=== PATIENT | male | born 1965 | race Caucasian/White ===

== ENCOUNTER 2020-03-16 09:58 | Emergency (ER) | payer MEDICAID, SELFPAY ==
[2020-03-16 10:09] VITALS: BP 211/118; PULSE 84; RESP 18; TEMP 36.7; O2SAT 97; BMI 23.7
--- NOTE | 2020-03-16 10:23 | XR_ITS ---
WS: [id number] PORTABLE CHEST HISTORY: dyspnea/cough COMPARISON: 01/28/2019 Lungs are clear and well expanded. No pleural effusion or pneumothorax. Cardiac size: Normal. Mediastinum/Aorta: Normal mediastinum. No osseous abnormality seen. XR/XR chest 1V portable [id number] IMPRESSION: Unremarkable portable chest.
--- NOTE | 2020-03-16 10:23 | ECG_ITS ---
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 Measurements Intervals [place] Rate: 91 P: 75 VT: 146 QRS: 56 QRSD: 89 T: 63 QT: 353 QTc: 435 Interpretive Statements SINUS RHYTHM WITH OCCASIONAL VENTRICULAR PREMATURE COMPLEXES LEFT VENTRICULAR HYPERTROPHY AND ST-T CHANGE [VOLTAGE CRITERIA PLUS ST/T ABNORMALITY] Compared to ECG 01/28/2019 12:09:01 Ventricular premature complex(es) now present ST (T wave) deviation now present Electronically Signed On 03-17-2020 16:23:51 CDT by Shivam Ray M.D. [email or web address].Pirate Brandsmethodist olive branch hospitalDirect Grid Technologiesdayton oste[facility].[employer]/store/NU/[id number] tank
[2020-03-16 10:53] LABS: Basophils # 0.1 10^3/uL (0.0-0.1); Basophils % 0.8 %; Eosinophils # 0.1 10^3/uL (0.0-0.8); Eosinophils % 1.6 %; Hematocrit 52.4 % (42.0-52.0); Hemoglobin 17.1 g/dL (11.7-16.6); Lymphocytes # 1.2 10^3/uL (0.8-4.8); Lymphocytes % 19.5 %; Mean Corpuscular HGB Conc 32.6 g/dL (30.0-36.0); Mean Corpuscular Volume 95.1 fL (80-94); Mean Platelet Volume 9.9 fL (7.4-10.4); Monocytes # 0.3 10^3/uL (0.2-0.9); Monocytes % 5.6 %; Neutrophils % 72.2 %; Nucleated Red Blood Cells % 0 %; Platelet Count 212 10^3/cmm (130-400); Red Blood Count 5.51 10^6/uL (4.1-5.3); Red Cell Distribution Width 13.1 % (12.1-15.1); White Blood Count 6.1 10^3/uL (4.0-10.0)
--- NOTE | 2020-03-16 10:53 | W.ED.SOB ---
HPI - SOB/Dyspnea General: Chief Complaint: Shortness of Breath/Dyspnea Stated Complaint: sob/chills/hot sweats Time Seen by Provider: 03/16/20 10:18 History of Present Illness: HPI Narrative: 54-year-old male comes in complaining of cough and shortness of breath he had some chest discomfort as well. Began last night. He is not been having any shortness of breath at rest there is no radiation of the pain he has had a bit of a headache. He has a history of WPW he also has a history of COPD. He has a little bit of increased cough is been nonproductive. MD elicited complaint: shortness of breath and chest pain Pertinent past history: COPD and other (History of Ortega Parkinson's White disease with previous ablations) Onset (ago): hour(s) Context: occurred during exertion Timing: intermittent Severity: moderate Exacerbating factors: exertion Relieving factors: rest and bronchodilators Known history of: COPD Associated symptoms: Reports chest congestion, chest pain and cough; Deny abdominal pain, diaphoresis, extremity pain, fever(s), hemoptysis, lightheadedness, myalgias, nausea, orthopnea, palpitations or syncope Treatment prior to arrival: none Review of Systems Const: Denies: fever(s) or diaphoresis ENMT: Denies: throat pain, ear or mastoid pain, nasal discharge or nasal congestion Card: Reports: chest pain; Denies: palpitations, lightheadedness, syncope or orthopnea Resp: Reports: chest congestion; Denies: hemoptysis GI: Denies: abdominal pain or nausea : Denies: flank pain, dysuria, urinary frequency or urinary urgency Musc: Denies: extremity pain Skin/Breast: Denies: rash or pruritus PFSH ED PFSH: Medical History (Updated 03/16/20 @ 12:39 by Raffaele Pacheco DO) COPD (chronic obstructive pulmonary disease) WPW (Vsgux-Htxblmtmo-Biswc syndrome) Surgical History (Updated 03/16/20 @ 12:39 by Raffaele Pacheco DO) History of cholecystectomy History of PTCA Social History (Updated 03/16/20 @ 12:40 by Raffaele Pacheco DO) Smoking and tobacco status: current every day smoker Alcohol intake: current Alcohol intake frequency: few times a week Physical Exam Const: COMMON NORMALS: no acute distress GENERAL APPEARANCE: cooperative and comfortable ORIENTATION/CONSCIOUSNESS: Yes awake, Yes oriented to person, Yes oriented to place and Yes oriented to time HENMT: COMMON NORMALS: normocephalic, atraumatic, hearing grossly normal bilaterally, external ears normal, moist oral mucous membranes and oropharynx normal HEAD & SCALP: normocephalic and atraumatic EXTERNAL EAR: Yes external ears normal Eye: COMMON NORMALS: Equal, round and reactive pupils present, EOMs intact bilaterally, conjunctivae normal and no scleral icterus CONJUNCTIVA: Yes conjunctivae normal PUPIL: Yes Equal, round and reactive pupils present Neck/C-Spine: COMMON NORMALS: full ROM, no lymphadenopathy, supple and no JVD Lymph: LYMPHATIC: no lymphadenopathy noted and no lymphedema noted Resp: COMMON NORMALS: normal respiratory effort, No retractions, No use of accessory muscles and clear to auscultation bilaterally AUSCULTATION: clear to auscultation bilaterally Cardio: COMMON NORMALS: no JVD, regular rate, regular rhythm and No murmurs present (Cardio) RATE: regular rate RHYTHM: regular rhythm GI: COMMON NORMALS: Soft to palpation and No hepatosplenomegaly present AUSCULTATION: Yes normoactive bowel sounds PALPATION: Yes Soft to palpation, No Tenderness to palpation present (GI), No Guarding due to palpation present (GI) and Yes No hepatosplenomegaly present Extremity: COMMON NORMALS: normal to inspection, capillary refill normal, no clubbing, cyanosis or edema, no calf tenderness and no pedal edema Neuro: SENSORIUM/ORIENTATION: Yes oriented to person, Yes oriented to place and Yes oriented to time Skin: COMMON NORMALS: no rashes or lesions noted GENERAL SKIN EXAM: no rashes or lesions noted Course Vital Signs: Vital signs: Vital Signs Temperature 98.0 F 03/16/20 10:09 Pulse Rate 99 03/16/20 11:30 Respiratory Rate 21 H 03/16/20 11:30 Blood Pressure 211/118 03/16/20 10:09 Pulse Oximetry 96 03/16/20 11:30 MDM - SOB/Dyspnea MDM Narrative: Medical decision making narrative: We are waiting on a second troponin on the patient is an EKG looking normal. He had no ST changes. He did not want to wait evidently had a court date nurse try to accommodate him by sending a note and he did not feel this is adequate insisted on leaving he left before I had the chance to talk to him the nurse did advise him that it was AGAINST MEDICAL ADVICE that we need to get a second troponin to make sure there is no ongoing heart issues and that this could be potentially significant impact on his health if he did not wait he chose to leave anyway. Unfortunately due to being required to be with other patients at the time I was not able to discuss this with him before he left. Lab Data: Labs: Lab Results 03/16/20 03/16/20 03/16/20 Range/Units 10:40 10:40 10:40 WBC 6.1 (4.0-10.0) 10^3/ uL RBC 5.51 H (4.1-5.3) 10^6/u L Hgb 17.1 H (11.7-16.6) g/dL Hct 52.4 H (42.0-52.0) % MCV 95.1 H (80-94) fL MCH 31.0 (28.0-34.0) pg MCHC 32.6 (30.0-36.0) g/dL RDW 13.1 (12.1-15.1) % Plt Count 212 (130-400) 10^3/c mm MPV 9.9 (7.4-10.4) fL Neut % (Auto) 72.2 % Lymph % (Auto) 19.5 % [place] % (Auto) 5.6 % Eos % (Auto) 1.6 % Baso % (Auto) 0.8 % Neut # (Auto) 4.40 (1.8-7.7) 10^3/u L Lymph # (Auto) 1.2 (0.8-4.8) 10^3/u L [place] # (Auto) 0.3 (0.2-0.9) 10^3/u L Eos # (Auto) 0.1 (0.0-0.8) 10^3/u L Baso # (Auto) 0.1 (0.0-0.1) 10^3/u L Nucleated RBC % (a uto) 0 % Nucleated RBCs # 0.0 /100WBC Sodium 138 (136-145) mmol/L Potassium 3.8 (3.5-5.1) mmol/L Chloride 100 (98-107) mmol/L Carbon Dioxide 25 (22-29) mmol/L Anion Gap 16.8 (5-19) BUN 8 (6-20) mg/dL Creatinine 0.8 (0.7-1.2) mg/dL GFR Calculation 100.4 (90-130) mL/min Glucose 216 H (65-115) mg/dL Calculated Osmolal ity 288 (285-295) mOsm/k g Calcium 9.2 (8.5-10.5) mg/dL Total Bilirubin 0.2 (0.15-1.2) mg/dL AST 45 H (0-40) U/L ALT 55 H (0-41) U/L Alkaline Phosphata se 82 (40-130) IU/L Troponin T Baselin e 11 (0-15) ng/L Total Protein 7.3 (6.6-8.7) g/dL Albumin 4.4 (3.5-5.2) g/dL Globulin 2.9 (1.3-4.6) g/dL Discharge Plan Discharge Patient Disposition: Left Against Medical Advice Prescriptions: No Action No Known Home Medications RF: 0 Referrals: Iris Palacios FNP [Primary Care Provider] - Discharge Date/Time: 03/16/20 12:00 Coding Level of Care Code ED Celery Cutter for Ryder Kilgore
[2020-03-16 11:00] VITALS: PULSE 79; RESP 17; O2SAT 96
[2020-03-16 11:07] VITALS: PULSE 83; RESP 20; O2SAT 94
[2020-03-16 11:20] LABS: Alanine Aminotransferase 55 U/L (0-41); Albumin Level 4.4 g/dL (3.5-5.2); Alkaline Phosphatase 82 IU/L (40-130); Blood Urea Nitrogen 8 mg/dL (6-20); Calcium 9.2 mg/dL (8.5-10.5); Carbon Dioxide 25 mmol/L (22-29); Chloride 100 mmol/L (98-107); Globulin 2.9 g/dL (1.3-4.6); Glomerular Filtration Rate 100.4 mL/min (90-130); Glucose 216 mg/dL (65-115); Osmolality Calculated 288 mOsm/kg (285-295); Sodium 138 mmol/L (136-145); Total Bilirubin 0.2 mg/dL (0.15-1.2); Total Protein 7.3 g/dL (6.6-8.7); Troponin(5th) Baseline 11 ng/L (0-15)
[2020-03-16 11:25] LABS: Anion Gap 16.8 (5-19)
[2020-03-16 11:26] LABS: Aspartate Amino Transferase 45 U/L (0-40); Potassium 3.8 mmol/L (3.5-5.1)
[2020-03-16] MEDS: acetaminophen 325 mg Tablet 650 MG PO (11:27)
[2020-03-16] MEDS: hyDRALAzine 20 mg/mL INJ 1 mL 5 MG IVP (11:28)
[2020-03-16] MEDS: amlodipine 5 mg Tablet PO (11:28)
[2020-03-16 11:30] VITALS: PULSE 99; RESP 21; O2SAT 96
== END 2020-03-16 12:00 | disposition left against medical advice (07) ==
PROVIDERS: Emergency Provider Family Medicine; PCP Nurse Practitioner
DX: R05 Cough (principal); R06.02 Shortness of breath; Z53.21 Procedure and treatment not carried out due to patient leaving prior to being seen by health care provider; J44.9 Chronic obstructive pulmonary disease, unspecified; I45.6 Pre-excitation syndrome; F17.210 Nicotine dependence, cigarettes, uncomplicated
CPT/HCPCS: 12345; 36415; 71045; 80053; 84484; 85025; 93005; 96374; 96375; 99283; 99284; J0360

== ENCOUNTER 2020-09-13 06:51 | Emergency (ER) | payer MEDICAID, SELFPAY ==
[2020-09-13 06:53] VITALS: BMI 27.3
--- NOTE | 2020-09-13 07:07 | ED_ITS ---
HPI - Abdominal Pain General: Chief Complaint: Abdominal Pain Stated Complaint: SEVERE ABDOMINAL PAIN Time Seen by Provider: 09/13/20 06:54 History of Present Illness: HPI narrative: The patient is a 55-year-old male with past medical history of COPD and brain surgery a few months back as well as chronic rash he is seeing his primary care physician for. He comes to the ER today complaining of about an hour of severe abdominal pain and fullness. He says he had a normal bowel movement this morning. Denies nausea, vomiting, diarrhea, constipation. Also denies chest pain and shortness of breath. Abdominal pain is diffuse and comes in waves. He took 3 Aleve prior to arrival to help with the symptoms however it is not helped. MD elicited complaint: abdominal pain Pertinent past history: none Onset (ago): hour(s) (1) Pain Consistency: intermittent Location: Diffuse Severity: severe Quality: cramping, fullness and sharp Migration to: no migration Exacerbating factors: nothing Relieving factors: nothing Associated Symptoms: Denies chills, constipation, diarrhea, dysuria, fever(s), nausea and vomiting Review of Systems General: Reports: 10 or more systems reviewed and unremarkable except in HPI and below Const: Denies: fever(s) or chills Eyes: Denies: change in vision, blurry vision or eye redness ENMT: Denies: throat pain, swelling of lips/tongue, ear or mastoid pain or nasal congestion Card: Denies: chest pain, palpitations, irregular heart rhythm, edema, dyspnea on exertion or orthopnea Resp: Denies: dyspnea, productive cough or non-productive cough GI: Reports: abdominal pain; Denies: nausea, vomiting, diarrhea or constipation : Denies: dysuria Musc: Denies: neck pain, back pain, extremity pain, joint pain, joint redness, limited range of motion or muscle weakness Skin/Breast: Denies: rash, pruritus, erythema, skin pain or skin tenderness Neuro: Denies: headache(s), numbness in extremities, weakness in extremities, sensory changes, difficulty walking, dizziness, confusion or Slurred speech present Psych: Denies: anxiety or depression Endo: Denies: polyuria All/Imm: Denies: urticaria, throat swelling or tongue swelling [facility] ED PFSH: Medical History (Updated 09/13/20 @ 13:10 by Rayshawn Mensah MD) COPD (chronic obstructive pulmonary disease) WPW (Qrctm-Vjjersmcf-Ukyrw syndrome) Surgical History (Updated 03/16/20 @ 12:39 by Raffaele Pacheco DO) History of cholecystectomy History of PTCA Social History (Updated 03/16/20 @ 12:40 by Raffaele Pacheco DO) Smoking and tobacco status: current every day smoker Alcohol intake: current Alcohol intake frequency: few times a week Physical Exam Const: COMMON NORMALS: no acute distress, average body habitus, patient oriented x3, no limitations, healthy appearing, alert and well nourished GENERAL APPEARANCE: cooperative, comfortable, well kempt and well developed ORIENTATION/CONSCIOUSNESS: Yes awake, Yes oriented to person, Yes oriented to place and Yes oriented to time HENMT: COMMON NORMALS: normocephalic, external ears normal and Normal external nose present HEAD & SCALP: normal to inspection and normocephalic NOSE: Normal external nose present EXTERNAL EAR: Yes external ears normal MOUTH: Normal oral and palatal mucosa present THROAT: posterior oropharynx normal Eye: COMMON NORMALS: Equal, round and reactive pupils present and EOMs intact bilaterally GENERAL EYE: appearance normal, both eyes and all related structures PUPIL: Yes Equal, round and reactive pupils present Neck/C-Spine: COMMON NORMALS: full ROM, no lymphadenopathy, no meningeal signs and no JVD GENERAL: Yes normal visual inspection Lymph: LYMPHATIC: no lymphadenopathy noted Chest: COMMONS NORMALS: normal inspection of the chest and normal palpation of entire chest wall Resp: COMMON NORMALS: normal respiratory effort, No retractions, No use of accessory muscles, clear to auscultation bilaterally and percussion normal EFFORT & INSPECTION: Yes able to speak in complete sentences AUSCULTATION: clear to auscultation bilaterally PERCUSSION: percussion normal Cardio: COMMON NORMALS: no JVD, regular rate, regular rhythm, S1 normal heart sound present, S2 normal heart sound present and Peripheral pulses 2+ throughout RATE: regular rate RHYTHM: regular rhythm HEART SOUNDS: S1 normal heart sound present and S2 normal heart sound present PERIPHERAL PULSES: Peripheral pulses 2+ throughout GI: COMMON NORMALS: Normal to inspection, nondistended, normoactive bowel sounds present, Soft to palpation, non-tender and no masses INSPECTION: Yes normal to inspection PALPATION: Yes Soft to palpation : COMMON NORMALS: Yes no CVA tenderness BLADDER/KIDNEY EXAM: Yes no CVA tenderness Back/Pelvis: COMMON NORMALS: no CVA tenderness, thoracic and lumbar spine normal to inspection, no thoracic nor lumbar tenderness and thoraco-lumbar ROM normal Extremity: COMMON NORMALS: normal to inspection, full ROM, capillary refill normal, no joint enlargement and no pedal edema GENERAL: Yes normal exam except as noted Neuro: COMMON NORMALS: patient oriented x3, CN's II-XII intact bilaterally, moves all extremities, no focal motor deficits, no sensory deficits noted and gait normal SENSORIUM/ORIENTATION: Yes alert, Yes oriented to person, Yes oriented to place and Yes oriented to time MENINGEAL SIGNS: Yes no meningeal signs Psych: COMMON NORMALS: mental status grossly normal, Normal thought process present, cooperative, normal affect and speech normal APPEARANCE: Yes well kempt ATTITUDE: Yes calm SPEECH: Yes normal speech THOUGHT PROCESS: Normal thought process present Skin: COMMON NORMALS: no rashes or lesions noted GENERAL SKIN EXAM: no rashes or lesions noted Course Vital Signs: Vital signs: Vital Signs Pulse Rate 110 H 09/13/20 11:48 Respiratory Rate 18 09/13/20 11:48 Blood Pressure 126/73 09/13/20 11:48 Pulse Oximetry 92 09/13/20 11:48 MDM - Abdominal Pain MDM Narrative: Medical decision making narrative: The patient is intoxicated on alcohol but he says he does not feel like his belly pain is related to this. His liver enzymes were elevated and I shirin a hepatitis panel which came back positive for hepatitis C and equivocal for hepatitis A. He has no previous knowledge of these infections. Discussed with his primary care physicians clinic which is closed. Dr. Rose is on-call for them and discussed the results with him and he says he will place a note in his chart so he can get a GI follow-up. will see in the ER. saw her in the ER and accepted for admission. He refused to give urine shortly after that visit and requested to leave. Discussed with him it would be AGAINST MEDICAL ADVICE. Discussed that he has hepatitis C and possibly hepatitis a and that he could have liver failure and from this. He understood and accepts the risks and signed AMA and left on his own will. Lab Data: Labs: Lab Results 01/17/21 01/17/21 01/17/21 Range/Units 07:03 07:03 07:03 WBC 8.7 (4.0-10.0) 10^3/ uL RBC 5.46 H (4.1-5.3) 10^6/u L Hgb 17.0 H (11.7-16.6) g/dL Hct 50.7 (42.0-52.0) % MCV 92.9 (80-94) fL MCH 31.1 (28.0-34.0) pg MCHC 33.5 (30.0-36.0) g/dL RDW 12.8 (12.1-15.1) % Plt Count 219 (130-400) 10^3/c mm MPV 9.7 (7.4-10.4) fL Neut % (Auto) 60.0 % Lymph % (Auto) 31.5 % [place] % (Auto) 5.6 % Eos % (Auto) 0.8 % Baso % (Auto) 0.6 % Neut # (Auto) 5.21 (1.8-7.7) 10^3/u L Lymph # (Auto) 2.7 (0.8-4.8) 10^3/u L [place] # (Auto) 0.5 (0.2-0.9) 10^3/u L Eos # (Auto) 0.1 (0.0-0.8) 10^3/u L Baso # (Auto) 0.1 (0.0-0.1) 10^3/u L Nucleated RBC % (a uto) 0 % Nucleated RBCs # 0.0 /100WBC Sodium 143 (136-145) mmol/L Potassium 3.7 (3.5-5.1) mmol/L Chloride 107 (98-107) mmol/L Carbon Dioxide 25 (22-29) mmol/L Anion Gap 14.7 (5-19) BUN 14 (6-20) mg/dL Creatinine 1.3 H (0.7-1.2) mg/dL GFR Calculation 57.1 L (90-130) mL/min Glucose 228 H (65-115) mg/dL Calculated Osmolal ity 304 H (285-295) mOsm/k g Lactate 2.4 H (0.5-2.2) mmol/L Calcium 9.3 (8.5-10.5) mg/dL Total Bilirubin 0.2 (0.15-1.2) mg/dL AST 61 H (0-40) U/L ALT 95 H (0-41) U/L Alkaline Phosphata se 78 (40-130) IU/L Total Protein 6.7 (6.6-8.7) g/dL Albumin 3.9 (3.5-5.2) g/dL Globulin 2.8 (1.3-4.6) g/dL Lipase 60 (13-60) U/L Ethyl Alcohol 202 H (0-10) mg/dL Hepatitis A IgM Ab (Nonreactive) Hep Bs Antigen (Nonreactive) Hep B Core IgM Ab (Nonreactive) Hepatitis C Antibo dy (Nonreactive) 09/13/20 Range/Units 07:03 WBC (4.0-10.0) 10^3/ uL RBC (4.1-5.3) 10^6/u L Hgb (11.7-16.6) g/dL Hct (42.0-52.0) % MCV (80-94) fL MCH (28.0-34.0) pg MCHC (30.0-36.0) g/dL RDW (12.1-15.1) % Plt Count (130-400) 10^3/c mm MPV (7.4-10.4) fL Neut % (Auto) % Lymph % (Auto) % [place] % (Auto) % Eos % (Auto) % Baso % (Auto) % Neut # (Auto) (1.8-7.7) 10^3/u L Lymph # (Auto) (0.8-4.8) 10^3/u L [place] # (Auto) (0.2-0.9) 10^3/u L Eos # (Auto) (0.0-0.8) 10^3/u L Baso # (Auto) (0.0-0.1) 10^3/u L Nucleated RBC % (a uto) % Nucleated RBCs # /100WBC Sodium (136-145) mmol/L Potassium (3.5-5.1) mmol/L Chloride (98-107) mmol/L Carbon Dioxide (22-29) mmol/L Anion Gap (5-19) BUN (6-20) mg/dL Creatinine (0.7-1.2) mg/dL GFR Calculation (90-130) mL/min Glucose (65-115) mg/dL Calculated Osmolal ity (285-295) mOsm/k g Lactate (0.5-2.2) mmol/L Calcium (8.5-10.5) mg/dL Total Bilirubin (0.15-1.2) mg/dL AST (0-40) U/L ALT (0-41) U/L Alkaline Phosphata se (40-130) IU/L Total Protein (6.6-8.7) g/dL Albumin (3.5-5.2) g/dL Globulin (1.3-4.6) g/dL Lipase (13-60) U/L Ethyl Alcohol (0-10) mg/dL Hepatitis A IgM Ab Equivocal A* (Nonreactive) Hep Bs Antigen Non-reactive (Nonreactive) Hep B Core IgM Ab Non-reactive (Nonreactive) Hepatitis C Antibo dy Reactive H (Nonreactive) Discharge Plan Discharge Patient Disposition: Left Against Medical Advice Clinical Impression: Hepatitis C, Hepatitis Prescriptions: No Action gabapentin 600 mg tablet 600 mg PO BID@0800,1800 RF: 0 ProAir HFA 90 mcg/actuation HFA aerosol inhaler 2 puff INHALATION Q4H PRN (Reason: Shortness Of Breath) RF: 0 Coding Level of Care Code ED Mass Communications Professor for Chg Fwd Exam Comprehensive
[2020-09-13] MEDS: diphenhydrAMINE 50 mg/mL SDV 1mL 25 MG IVP (07:10)
[2020-09-13] MEDS: ondansetron 2 mg/ML SDV 2 mL 4 MG IVP (07:11)
[2020-09-13] MEDS: sodium chloride 0.9% 1,000 ML 999 ML IV (07:11)
[2020-09-13 07:13] LABS: Basophils # 0.1 10^3/uL (0.0-0.1); Basophils % 0.6 %; Eosinophils # 0.1 10^3/uL (0.0-0.8); Eosinophils % 0.8 %; Hematocrit 50.7 % (42.0-52.0); Lymphocytes # 2.7 10^3/uL (0.8-4.8); Lymphocytes % 31.5 %; Mean Corpuscular HGB Conc 33.5 g/dL (30.0-36.0); Mean Corpuscular Hemoglobin 31.1 pg (28.0-34.0); Mean Corpuscular Volume 92.9 fL (80-94); Mean Platelet Volume 9.7 fL (7.4-10.4); Monocytes # 0.5 10^3/uL (0.2-0.9); Monocytes % 5.6 %; Neutrophils # 5.21 10^3/uL (1.8-7.7); Nucleated Red Blood Cells % 0 %; Platelet Count 219 10^3/cmm (130-400); Red Blood Count 5.46 10^6/uL (4.1-5.3); Red Cell Distribution Width 12.8 % (12.1-15.1); White Blood Count 8.7 10^3/uL (4.0-10.0)
[2020-09-13 07:34] LABS: Lactate (Lactic Acid level) 2.4 mmol/L (0.5-2.2)
[2020-09-13 07:35] LABS: Alanine Aminotransferase 95 U/L (0-41); Albumin Level 3.9 g/dL (3.5-5.2); Alcohol Level 202 mg/dL (0-10); Alkaline Phosphatase 78 IU/L (40-130); Anion Gap 14.7 (5-19); Aspartate Amino Transferase 61 U/L (0-40); Blood Urea Nitrogen 14 mg/dL (6-20); Calcium 9.3 mg/dL (8.5-10.5); Carbon Dioxide 25 mmol/L (22-29); Chloride 107 mmol/L (98-107); Creatinine Clr Calc Pharmacy 64.0873; Globulin 2.8 g/dL (1.3-4.6); Glomerular Filtration Rate 57.1 mL/min (90-130); Glucose 228 mg/dL (65-115); Lipase 60 U/L (13-60); Osmolality Calculated 304 mOsm/kg (285-295); Potassium 3.7 mmol/L (3.5-5.1); Sodium 143 mmol/L (136-145); Total Bilirubin 0.2 mg/dL (0.15-1.2); Total Protein 6.7 g/dL (6.6-8.7)
--- NOTE | 2020-09-13 07:55 | CTR_ITS ---
PROCEDURE INFORMATION: Exam: CT Abdomen And Pelvis With Contrast Exam date and time: 09/13/2020 8:11 AM Age: 55 years old Clinical indication: Abdominal pain; Additional info: Abd pain TECHNIQUE: Imaging protocol: Computed tomography of the abdomen and pelvis with intravenous contrast. Radiation optimization: All CT scans at this facility use at least one of these dose optimization techniques: automated exposure control; mA and/or kV adjustment per patient size (includes targeted exams where dose is matched to clinical indication); or iterative reconstruction. Contrast material: OMNI 300; Contrast volume: 95 ml; Contrast route: INTRAVENOUS (IV); COMPARISON: No relevant prior studies available. RADIATION DOSE METRICS: Total DLP (mGy-cm): 641.69 FINDINGS: Lungs: There is mild dependent atelectasis in the lung bases. There is a small benign calcified granuloma in the left lung base. Liver: Normal. No mass. Gallbladder and bile ducts: Cholecystectomy. Normal bile ducts. Pancreas: Normal. No ductal dilation. Spleen: The multiple small benign calcified granulomas in the spleen. Adrenal glands: Normal. No mass. Kidneys and ureters: Normal. No hydronephrosis. Stomach and bowel: Unremarkable. No obstruction. No mucosal thickening. Appendix: No evidence of appendicitis. Intraperitoneal space: Unremarkable. No free air. No significant fluid collection. Vasculature: There is calcified atherosclerotic plaquing in the aorta. There is no aneurysm. Lymph nodes: Unremarkable. No enlarged lymph nodes. Urinary bladder: Unremarkable as visualized. Reproductive: Unremarkable as visualized. Bones/joints: Unremarkable. No acute fracture. Soft tissues: Unremarkable. CT/CT abdomen pelvis w con* [id number] IMPRESSION: No acute abnormalities are seen in the abdomen and pelvis. Radiation Dose CTDIVOL = (mGy): DLP = 641.69 (mGy-cm)
[2020-09-13] MEDS: iohexol 300 mg/mL 100 mL Btl IV (08:27)
--- NOTE | 2020-09-13 08:40 | PC.NURSE ---
patient returned from ct reminded him that we needed urine and he said that if i dont give him something to drink he was going to check out
[2020-09-13 08:43] VITALS: BP 153/71; PULSE 101; RESP 20; O2SAT 92
[2020-09-13 09:36] LABS: Hepatitis B Core IgM Non-Reactive (Nonreactive); Hepatitis B Surface Antigen Non-Reactive (Nonreactive); Hepatitis C Virus Antibody Reactive (Nonreactive)
[2020-09-13 10:18] LABS: Hepatitis A Antibody IgM Equivocal (Nonreactive)
[2020-09-13 11:48] VITALS: BP 126/73; PULSE 110; RESP 18; O2SAT 92
--- NOTE | 2020-09-13 12:30 | PC.NURSE ---
patient continues to refuse to give urine sample
--- NOTE | 2020-09-14 10:20 | DCPLANNER ---
visual merchandising manager had message to schedule a follow up appointment for patient with a physician for retest of hep a and referral for chronic hep c. visual merchandising manager called the office of Dr. Souza, spoke with Eloisa, gave clinic patients information. A followup appointment was scheduled for Monday, September 23, 2020 at 1:[address] Souza. Clinic will call patient with appointment information.
--- NOTE | 2020-11-03 12:35 | DCPLANNER ---
Patient had a follow up appointment scheduled for 09.23.[address] Souza - patient did attend appointment.
== END 2020-09-13 12:46 | disposition left against medical advice (07) ==
PROVIDERS: Emergency Provider Family Medicine
DX: B19.20 Unspecified viral hepatitis C without hepatic coma (principal); Z53.21 Procedure and treatment not carried out due to patient leaving prior to being seen by health care provider; J44.9 Chronic obstructive pulmonary disease, unspecified; I45.6 Pre-excitation syndrome; F17.210 Nicotine dependence, cigarettes, uncomplicated
CPT/HCPCS: 12345; 74177; 80053; 80074; 80307; 83605; 83690; 85025; 96361; 96374; 96375; 99282; 99283; J1200; J2405; J7030; Q9967

== ENCOUNTER → 2020-09-23 14:51 | Outpatient (BNVA) | payer MEDICAID, SELFPAY | PROVIDERS: PCP Physician Assistant Medical; Visit Provider Internal Medicine | DX: R76.8 Other specified abnormal immunological findings in serum (principal); B19.20 Unspecified viral hepatitis C without hepatic coma; B18.2 Chronic viral hepatitis C | CPT/HCPCS: 80053; 85025; 86708; 86709; 87522; 87902 ==

== ENCOUNTER 2020-11-23 18:15 | Emergency (ER) | payer MEDICAID, SELFPAY ==
--- NOTE | 2020-11-23 18:22 | ECG_ITS ---
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1965 Requested By: Cierra Delgado Order Number: [id number] Reading MD: REY ADAMS Measurements Intervals Index Rate: 101 P: 71 MS: 141 QRS: 59 QRSD: 86 T: 72 QT: 360 QTc: 468 Interpretive Statements SINUS TACHYCARDIA WITH OCCASIONAL VENTRICULAR PREMATURE COMPLEXES WITH OCCASIONAL SUPRAVENTRICULAR PREMATURE COMPLEXES POSSIBLE RIGHT ATRIAL ENLARGEMENT [0.25mV P WAVE] POSSIBLE LEFT ATRIAL ENLARGEMENT [-0.1mV P WAVE IN V1/V2] POSSIBLE LEFT VENTRICULAR HYPERTROPHY [VOLTAGE CRITERIA PLUS LAE OR QRS WIDENING] NONSPECIFIC T-WAVE ABNORMALITY Compared to ECG 03/16/2020 10:41:10 T-wave abnormality now present Sinus rhythm no longer present ST (T wave) deviation no longer present Electronically Signed On 11-24-2020 20:18:13 CDT by REY ADAMS [email or web address].[employer]/store/OV/[id number]
--- NOTE | 2020-11-23 18:22 | XRR_ITS ---
PROCEDURE INFORMATION: Exam: XR Chest Exam date and time: 11/23/2020 6:35 PM Age: 55 years old Clinical indication: Chest pain; Type not specified; Additional info: Cp TECHNIQUE: Imaging protocol: XR of the chest Views: 1 view. Total images: 1 COMPARISON: CR XR chest 1V portable [id number] 03/16/2020 10:51 AM FINDINGS: Lungs: Unremarkable. No consolidation. Pleural spaces: Unremarkable. No pleural effusion. No pneumothorax. Heart/Mediastinum: Unremarkable. No cardiomegaly. Bones/joints: Unremarkable. XR/XR chest 1V portable [id number] IMPRESSION: No acute findings.
[2020-11-23 18:23] VITALS: PULSE 75; RESP 20; TEMP 36.5; O2SAT 95; BMI 25.1
[2020-11-23 18:52] VITALS: PULSE 84
[2020-11-23 18:57] LABS: Basophils % 0.4 %; Eosinophils # 0.1 10^3/uL (0.0-0.8); Eosinophils % 0.8 %; Hematocrit 52.6 % (42.0-52.0); Hemoglobin 17.7 g/dL (11.7-16.6); Lymphocytes # 2.2 10^3/uL (0.8-4.8); Lymphocytes % 21.2 %; Mean Corpuscular HGB Conc 33.7 g/dL (30.0-36.0); Mean Corpuscular Hemoglobin 31.2 pg (28.0-34.0); Mean Corpuscular Volume 92.8 fL (80-94); Monocytes # 0.6 10^3/uL (0.2-0.9); Monocytes % 5.4 %; Neutrophils # 7.52 10^3/uL (1.8-7.7); Neutrophils % 71.5 %; Nucleated Red Blood Cells % 0 %; Platelet Count 254 10^3/cmm (130-400); Red Blood Count 5.67 10^6/uL (4.1-5.3); Red Cell Distribution Width 12.8 % (12.1-15.1); White Blood Count 10.5 10^3/uL (4.0-10.0)
--- NOTE | 2020-11-23 18:59 | XRR_ITS ---
PROCEDURE INFORMATION: Exam: XR Right Knee Exam date and time: 11/23/2020 7:55 PM Age: 55 years old Clinical indication: Pain and injury or trauma; Fall; Blunt trauma; Knee; Right; Injury date: 11/23/30 TECHNIQUE: Imaging protocol: XR Right knee. Views: 3 views. COMPARISON: No relevant prior studies available. FINDINGS: Bones/joints: Normal. No acute fracture. Soft tissues: Normal. XR/XR knee RT 3V* [id number] IMPRESSION: No acute findings.
[2020-11-23] MEDS: aspirin 81 mg Chew Tablet 324 MG PO (19:24)
[2020-11-23 19:25] VITALS: RESP 20
[2020-11-23] MEDS: morphine 4 mg/mL SDV 1 mL IVP ×2 (19:25→23:19)
[2020-11-23] MEDS: ondansetron 2 mg/ML SDV 2 mL 4 MG IVP (19:26)
[2020-11-23 20:21] LABS: Alanine Aminotransferase 18 U/L (0-41); Albumin Level 4.5 g/dL (3.5-5.2); Alkaline Phosphatase 85 IU/L (40-130); Anion Gap 17.4 (5-19); Aspartate Amino Transferase 25 U/L (0-40); Blood Urea Nitrogen 17 mg/dL (6-20); Calcium 9.8 mg/dL (8.5-10.5); Carbon Dioxide 29 mmol/L (22-29); Chloride 95 mmol/L (98-107); Creatinine Clr Calc Pharmacy 64.8657; Globulin 3.6 g/dL (1.3-4.6); Glomerular Filtration Rate 52.4 mL/min (90-130); Glucose 142 mg/dL (65-115); Osmolality Calculated 290 mOsm/kg (285-295); Potassium 3.4 mmol/L (3.5-5.1); Sodium 138 mmol/L (136-145); Total Bilirubin 0.6 mg/dL (0.15-1.2); Total Protein 8.1 g/dL (6.6-8.7)
[2020-11-23 20:22] LABS: Troponin(5th) Baseline 31 ng/L (0-15)
[2020-11-23] MEDS: sodium chloride 0.9% 1,000 ML 999 ML IV (20:22)
--- NOTE | 2020-11-23 20:22 | ECG_ITS ---
[facility] Test Date: 2020-11-23 Pat Name: Marcio Herrera Department: Room: Gender: Male Marketing Professional: : 1965 Requested By: Cierra Delgado Order Number: [id number] Reading MD: REY ADAMS Measurements Intervals [place] Rate: 87 P: 61 IN: 132 QRS: 64 QRSD: 98 T: 21 QT: 422 QTc: 509 Interpretive Statements SINUS RHYTHM WITH OCCASIONAL SUPRAVENTRICULAR PREMATURE COMPLEXES POSSIBLE LEFT ATRIAL ENLARGEMENT [-0.1mV P WAVE IN V1/V2] POSSIBLE LEFT VENTRICULAR HYPERTROPHY [VOLTAGE CRITERIA PLUS LAE OR QRS WIDENING] PROLONGED QT INTERVAL Compared to ECG 03/16/2020 10:41:10 Prolonged QT interval now present Ventricular premature complex(es) no longer present ST (T wave) deviation no longer present Electronically Signed On 11-24-2020 20:20:26 CDT by REY ADAMS [email or web address] Kidsg[facility] systemiPractice Groupst[facility] [place] [facility].[employer]/store/NU/[id number] [email or web address]
[2020-11-23 20:27] LABS: Lipase 34 U/L (13-60)
[2020-11-23 22:24] LABS: Troponin 5 2HR 20.28 ng/L (0-15)
[2020-11-23 22:58] VITALS: BP 135/71; PULSE 98; RESP 14; O2SAT 93
--- NOTE | 2020-11-23 23:02 | W.ED.CHESTPA ---
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 He has some dizziness. He is therefore here to be evaluated. He also complains of right knee pain. MD complaint: chest pain Pertinent past history: other (WPW syndrome) Timing of current episode: episodic Prior episodes: No Onset: during exertion Pain location: left chest Pain radiation: neck Severity: moderate Relieving factors: nothing Exacerbating factors: nothing Associated symptoms: Deny abdominal pain, diaphoresis, dyspnea, fever(s), leg edema, nausea, palpitations, sense of impending doom, syncope or vomiting Treatment prior to arrival: none Review of Systems General: Reports: 10 or more systems reviewed and unremarkable except in HPI and below Const: Denies: fever(s) or diaphoresis Card: Denies: palpitations or syncope Resp: Denies: dyspnea GI: Denies: abdominal pain, nausea or vomiting [facility] PFSH: Medical History COPD (chronic obstructive pulmonary disease) WPW (Znhch-Zdmkrmslo-Dunya syndrome) Surgical History History of cholecystectomy History of PTCA Social History Smoking and tobacco status: current every day smoker Alcohol intake: current Alcohol intake frequency: few times a week History of recent travel: No Physical Exam Const: COMMON NORMALS: no acute distress, average body habitus, patient oriented x3, no limitations, healthy appearing, alert and well nourished HENMT: COMMON NORMALS: normocephalic, atraumatic and moist oral mucous membranes HEAD & SCALP: normocephalic and atraumatic Neck/C-Spine: COMMON NORMALS: no meningeal signs and no JVD Resp: COMMON NORMALS: normal respiratory effort, No retractions, No use of accessory muscles, clear to auscultation bilaterally and percussion normal AUSCULTATION: clear to auscultation bilaterally PERCUSSION: percussion normal Cardio: COMMON NORMALS: no JVD, regular rhythm, S1 normal heart sound present, S2 normal heart sound present, No gallops present (Cardio), No clicks present (Cardio), No murmurs present (Cardio), No rub (Cardio) and Peripheral pulses 2+ throughout RATE: tachycardic RHYTHM: regular rhythm HEART SOUNDS: S1 normal heart sound present and S2 normal heart sound present PERIPHERAL PULSES: Peripheral pulses 2+ throughout GI: COMMON NORMALS: Normal to inspection, nondistended, normoactive bowel sounds present, Soft to palpation, non-tender, No hepatosplenomegaly present, no masses and no bruits PALPATION: Yes Soft to palpation and Yes No hepatosplenomegaly present Extremity: COMMON NORMALS: normal to inspection, full ROM, capillary refill normal, no calf tenderness and no pedal edema RIGHT LOWER EXTREMITY: Yes knee joint Right knee: Yes inspection (no abnormal findings on inspection.) and Yes palpation (vague pain that is non specific) Neuro: COMMON NORMALS: patient oriented x3 SENSORIUM/ORIENTATION: Yes alert MENINGEAL SIGNS: Yes no meningeal signs Skin: COMMON NORMALS: no rashes or lesions noted, no wounds, turgor normal, no jaundice, no petechiae and no mottling GENERAL SKIN EXAM: no rashes or lesions noted and turgor normal Course Reevaluation(s): Reevaluation #1: Discussed his lab and imaging findings with him. HEART score is 4, with a MACE of 17% within 6 weeks. Discussed treatment options including hospitalization for further cardiac thoughts, but he declined hospitalization. He however agreed to an outpatient stress test and he will be scheduled for one as soon as possible. He voiced understanding and all questions answered. 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 Evaluation in the ED showed an elevation of baseline troponin and a 2 hour delta of -10 which is significant. HEART score of 4, moderate risk. He declined hospitalization so he is scheduled for an outpatient stress test. He understands that he is to return for any concerns. Medical Records: Attestation: I reviewed the patient's medical records. Lab Data: Attestation: I reviewed the patient's lab results. Labs: Lab Results 11/23/20 11/23/20 11/23/20 Range/Units 18:51 19:58 19:58 WBC 10.5 H (4.0-10.0) 10^3/ uL RBC 5.67 H (4.1-5.3) 10^6/u L Hgb 17.7 H (11.7-16.6) g/dL Hct 52.6 H (42.0-52.0) % MCV 92.8 (80-94) fL MCH 31.2 (28.0-34.0) pg MCHC 33.7 (30.0-36.0) g/dL RDW 12.8 (12.1-15.1) % Plt Count 254 (130-400) 10^3/c mm MPV 10.0 (7.4-10.4) fL Neut % (Auto) 71.5 % Lymph % (Auto) 21.2 % [place] % (Auto) 5.4 % Eos % (Auto) 0.8 % Baso % (Auto) 0.4 % Neut # (Auto) 7.52 (1.8-7.7) 10^3/u L Lymph # (Auto) 2.2 (0.8-4.8) 10^3/u L [place] # (Auto) 0.6 (0.2-0.9) 10^3/u L Eos # (Auto) 0.1 (0.0-0.8) 10^3/u L Baso # (Auto) 0.0 (0.0-0.1) 10^3/u L Nucleated RBC % (a uto) 0 % Nucleated RBCs # 0.0 /100WBC D-Dimer (0-0.59) ug/mIFE U Sodium 138 (136-145) mmol/L Potassium 3.4 L (3.5-5.1) mmol/L Chloride 95 L (98-107) mmol/L Carbon Dioxide 29 (22-29) mmol/L Anion Gap 17.4 (5-19) BUN 17 (6-20) mg/dL Creatinine 1.4 H (0.7-1.2) mg/dL GFR Calculation 52.4 L (90-130) mL/min Glucose 142 H (65-115) mg/dL Calculated Osmolal ity 290 (285-295) mOsm/k g Calcium 9.8 (8.5-10.5) mg/dL Total Bilirubin 0.6 (0.15-1.2) mg/dL AST 25 (0-40) U/L ALT 18 (0-41) U/L Alkaline Phosphata se 85 (40-130) IU/L Troponin T Baselin e 31 H (0-15) ng/L Troponin T 120 Min pala (0-15) ng/L Delta Troponin T (0-10) ABS# Total Protein 8.1 (6.6-8.7) g/dL Albumin 4.5 (3.5-5.2) g/dL Globulin 3.6 (1.3-4.6) g/dL Lipase (13-60) U/L 11/23/20 11/23/20 11/23/20 Range/Units 19:58 19:58 22:00 WBC (4.0-10.0) 10^3/ uL RBC (4.1-5.3) 10^6/u L Hgb (11.7-16.6) g/dL Hct (42.0-52.0) % MCV (80-94) fL MCH (28.0-34.0) pg MCHC (30.0-36.0) g/dL RDW (12.1-15.1) % Plt Count (130-400) 10^3/c mm MPV (7.4-10.4) fL Neut % (Auto) % Lymph % (Auto) % [place] % (Auto) % Eos % (Auto) % Baso % (Auto) % Neut # (Auto) (1.8-7.7) 10^3/u L Lymph # (Auto) (0.8-4.8) 10^3/u L [place] # (Auto) (0.2-0.9) 10^3/u L Eos # (Auto) (0.0-0.8) 10^3/u L Baso # (Auto) (0.0-0.1) 10^3/u L Nucleated RBC % (a uto) % Nucleated RBCs # /100WBC D-Dimer 0.40 (0-0.59) ug/mIFE U Sodium (136-145) mmol/L Potassium (3.5-5.1) mmol/L Chloride (98-107) mmol/L Carbon Dioxide (22-29) mmol/L Anion Gap (5-19) BUN (6-20) mg/dL Creatinine (0.7-1.2) mg/dL GFR Calculation (90-130) mL/min Glucose (65-115) mg/dL Calculated Osmolal ity (285-295) mOsm/k g Calcium (8.5-10.5) mg/dL Total Bilirubin (0.15-1.2) mg/dL AST (0-40) U/L ALT (0-41) U/L Alkaline Phosphata se (40-130) IU/L Troponin T Baselin e (0-15) ng/L Troponin T 120 Min pala 20.28 H (0-15) ng/L Delta Troponin T -10.72 L (0-10) ABS# Total Protein (6.6-8.7) g/dL Albumin (3.5-5.2) g/dL Globulin (1.3-4.6) g/dL Lipase 34 (13-60) U/L Imaging Data^: CXR: Attestation: I personally reviewed and interpreted this imaging study as follows: Radiologist's impression: [address] [address] XRay Report Signed Patient: Jose David Herrera #: [id number] : 1965Acct#:[id number] Age/Sex: 55 / MADM Date: 11/23/20 Loc: ERRoom/Bed: Attending Dr: Ordering Provider/Ordering MD: Cierra Delgado MD Date of Service: 11/23/20 Procedure(s): XR chest 1V portable [id number] Accession Number(s): [id number] Report Number: [id number] PROCEDURE INFORMATION: Exam: XR Chest Exam date and time: 11/23/2020 6:35 PM Age: 55 years old Clinical indication: Chest pain; Type not specified; Additional info: Cp TECHNIQUE: Imaging protocol: XR of the chest Views: 1 view. Total images: 1 COMPARISON: CR XR chest 1V portable [id number] 03/16/2020 10:51 AM FINDINGS: Lungs: Unremarkable. No consolidation. Pleural spaces: Unremarkable. No pleural effusion. No pneumothorax. Heart/Mediastinum: Unremarkable. No cardiomegaly. Bones/joints: Unremarkable. XR/XR chest 1V portable [id number] IMPRESSION: No acute findings. Dictated By:Yefri Conley Signed By:Deisy Conley Date/Time:11/23/202358 DD/ 55 Xray Ortho: Attestation: I personally reviewed and interpreted this imaging study as follows: Radiologist's impression: [address] [address] XRay Report Signed Patient: Jose David Herrera #: [id number] : 1965Acct#:[id number] Age/Sex: 55 / MADM Date: 11/23/20 Loc: ERRoom/Bed: Attending Dr: Ordering Provider/Ordering MD: Polo T[place] [facility] [place] of Service: 11/23/20 Procedure(s): XR knee RT 3V* [id number] Accession Number(s): [id number] Report Number: [id number] PROCEDURE INFORMATION: Exam: XR Right Knee Exam date and time: 11/23/2020 7:55 PM Age: 55 years old Clinical indication: Pain and injury or trauma; Fall; Blunt trauma; Knee; Right; Injury date: 11/23/30 TECHNIQUE: Imaging protocol: XR Right knee. Views: 3 views. COMPARISON: No relevant prior studies available. FINDINGS: Bones/joints: Normal. No acute fracture. Soft tissues: Normal. XR/XR knee RT 3V* [id number] IMPRESSION: No acute findings. Dictated By:Indy Abernathy DO Signed By:Indy Abernathy DOSigned Date/Time:11/24/2014 DD/ EKG Data^: EKG 1: Attestation: I personally reviewed and interpreted this EKG as follows: EKG interpretation date: 11/23/20 EKG interpretation time: 22:07 Prior EKG tracings: not available for review Interpretation: Sinus tachycardia with occasional PVC's HR 101 bpm q wave in leads II, III, aVF. No ST changes. Discharge Plan Discharge Patient Disposition: Home Clinical Impression: WPW (Cnnup-Qvkyhjcaj-Dmywh syndrome), Chest pain Condition: Stable Prescriptions: Continued terbinafine HCl 250 mg tablet 250 mg PO DAILY Qty: 14 RF: 0 mupirocin 2 % ointment 1 applic topical BID Qty: 22 RF: 1 celecoxib [Celebrex] 200 mg capsule 200 mg PO BID Qty: 60 RF: 4 sofosbuvir-velpatasvir [Epclusa] 400-100 mg tablet 1 tab PO DAILY 84 Days Qty: 28 RF: 2 pantoprazole 40 mg tablet,delayed release (DR/EC) 40 mg PO QAM Qty: 90 RF: 3 gabapentin 600 mg tablet 600 mg PO BID@0800,1800 RF: 0 ProAir HFA 90 mcg/actuation HFA aerosol inhaler 2 puff INHALATION Q4H PRN (Reason: Shortness Of Breath) RF: 0 Discharge Orders: Discharge ED (Routine); Ordered 11/23/20 Ordered By: Polo Tuttle Referrals: Fernando Beckford [Primary Care Provider] - 1-3 days Discharge Diet: Usual diet Discharge Activity: Increase activity as tolerated Patient Instructions: Chest Pain (ED) Activity Restrictions/Additional Instructions: Return for any new or worsening symptoms. Follow-up with your primary care provider within 3 days. You will be contacted to schedule an outpatient stress test. Take your home medications as prescribed. Coding Level of Care Code ED Media Reporter for Ryder Kilgore
[2020-11-23 23:19] VITALS: RESP 18; O2SAT 99
--- NOTE | 2020-11-26 14:00 | DCPLANNER ---
health and safety manager had message to schedule an outpatient stress test for patient. health and safety manager faxed signed order for stress test to centralized scheduling. Centralized scheduling will call patient to schedule appointment.
--- NOTE | 2020-12-08 08:07 | DCPLANNER ---
Patient has an outpatient stress test scheduled for Tuesday, December 15, 2020 at 1:00.
--- NOTE | 2020-12-23 10:41 | DCPLANNER ---
Patient had an outpatient stress test scheduled for 12.15.20 - patient did not attend appointment.
== END 2020-11-23 23:24 | disposition home or self-care (01) ==
PROVIDERS: Emergency Medicine; Emergency Provider Family Medicine; PCP Physician Assistant Medical
DX: R07.9 Chest pain, unspecified (principal); I45.6 Pre-excitation syndrome; J44.9 Chronic obstructive pulmonary disease, unspecified; F17.210 Nicotine dependence, cigarettes, uncomplicated
CPT/HCPCS: 36415; 71045; 73562; 80053; 83690; 84484; 85025; 85378; 93005; 96361; 96374; 96375; 96376; 99284; J2270; J2405; J7030

== ENCOUNTER 2021-05-19 05:47 | Emergency (ER) | payer MEDICAID, SELFPAY ==
[2021-05-19 05:50] VITALS: BP 202/93; PULSE 88; RESP 22; TEMP 36.2; O2SAT 96; BMI 25.1
--- NOTE | 2021-05-19 06:14 | CTR_ITS ---
PROCEDURE INFORMATION: Exam: CT Head Without Contrast Exam date and time: 05/19/2021 6:14 AM Age: 56 years old Clinical indication: Injury or trauma; Fall; Blunt trauma (contusions or hematomas); Prior surgery; Additional info: Rule out brain bleed, fall TECHNIQUE: Imaging protocol: Computed tomography of the head without contrast. Radiation optimization: All CT scans at this facility use at least one of these dose optimization techniques: automated exposure control; mA and/or kV adjustment per patient size (includes targeted exams where dose is matched to clinical indication); or iterative reconstruction. COMPARISON: MRI Cervical Spine w/o* [id number] 04/20/2015 3:14 PM RADIATION DOSE METRICS: Total DLP (mGy-cm): 2101.89 FINDINGS: Brain: Small area of encephalomalacia in the right temporal lobe, consistent with remote insult. No abnormal intra-axial or extra-axial fluid collections are identified. There is no midline shift. No intracranial hemorrhage identified. Ventricles: The ventricles and sulci are mildly and diffusely prominent, compatible with global brain volume loss. Bones/joints: Status post right frontoparietotemporal craniotomy. Sinuses: Marked mucosal thickening of the right maxillary sinus. Status post bilateral nasoantral window formation. Mastoid air cells: Visualized mastoid air cells are well aerated. Soft tissues: Unremarkable. CT/CT head wo con* [id number] IMPRESSION: 1. No acute intracranial process identified. Radiation Dose CTDIVOL = (mGy): DLP = 2101.89 (mGy-cm)
--- NOTE | 2021-05-19 06:14 | CTR_ITS ---
PROCEDURE INFORMATION: Exam: CT Thoracic Spine Without Contrast Exam date and time: 05/19/2021 6:14 AM Age: 56 years old Clinical indication: Injury or trauma; Fall; Blunt trauma (contusions or hematomas); Patient HX: Patient fell down a flight of stairs 3 days ago. C/O mid back pain. ; Additional info: Rule out vertebral FX, T8-9 tenderness to palpation TECHNIQUE: Imaging protocol: Computed tomography images of the thoracic spine without contrast. Radiation optimization: All CT scans at this facility use at least one of these dose optimization techniques: automated exposure control; mA and/or kV adjustment per patient size (includes targeted exams where dose is matched to clinical indication); or iterative reconstruction. COMPARISON: CT abdomen pelvis w con* [id number] 09/13/2020 8:18 AM RADIATION DOSE METRICS: Total DLP (mGy-cm): 1478.35 FINDINGS: Vertebrae: There is a normal thoracic kyphosis. There is normal alignment of the thoracic spine. No fractures or dislocations identified involving the thoracic spine. Nondisplaced fracture of the left 3rd rib medially on series 2, image 28. Nondisplaced fracture of the left 4th rib medially on series 2, image 38. Nondisplaced fracture of the left 5th rib medially on series 2, image 45. Vertebral body heights are well maintained throughout. Discs/Spinal canal/Neural foramina: Intervertebral disc heights are well maintained throughout. The bony spinal canal is patent. Soft tissues: Unremarkable. CT/CT thoracic spin wo con* [id number] IMPRESSION: 1. Nondisplaced fractures of the left 3rd rib medially, the left 4th rib medially, and the left 5th rib medially. Radiation Dose CTDIVOL = (mGy): DLP = 1478.35 (mGy-cm)
--- NOTE | 2021-05-19 06:14 | XRR_ITS ---
PROCEDURE INFORMATION: Exam: XR Left Shoulder Exam date and time: 05/19/2021 6:14 AM Age: 56 years old Clinical indication: Injury or trauma; Fall; Blunt trauma (contusions or hematomas); Left; Injury details: Fell 2 days ago, pain to shoulder; Additional info: Rule out dislocation L shoulder TECHNIQUE: Imaging protocol: XR Left shoulder. Views: 2 or more views. COMPARISON: CR XR chest 2V* [id number] 05/19/2021 6:41 AM FINDINGS: Bones/joints: No fractures or dislocations identified. No significant bony abnormality identified. Soft tissues: No subcutaneous gas or radiopaque foreign body identified. XR/XR shoulder LT min 2V* [id number] IMPRESSION: 1. No fractures or dislocations identified.
--- NOTE | 2021-05-19 06:17 | W.ED.GENADLT ---
HPI - General Adult General: Chief complaint: Fall Stated complaint: FALL Time Seen by Provider: 05/19/21 06:14 History of Present Illness: HPI narrative: Patient is a 56-year-old male with hx of hypertension, COPD, prior VTE is not on blood thinners presenting to the emergency for episode of fall. Patient reports falling 3 days ago while walking down the stairs. Patient reports hitting his head complaining of left shoulder pain, left rib pain, left flank pain. Since then, patient has not had any improvement in pain presents the emergency room for evaluation. Patient is describes left-sided rib pain for which he is decreased range of motion of the left shoulder. Patient denies any associated chest pain shortness of breath, palpitation prior to the episode of fall. Onset: 3 days ago Duration:3 days Location: home Severity:moderate Review of Systems Narrative: Constitutional: No fever, no chills. HEENT: No vision changes CV: No chest pain, no palpitations PULM: no cough, no dyspnea. GI: No abdominal pain, no N/V/D. : No dysuria MSKEL: +L shoulder pain, +L uppre back pain, +L flank pain, +L elbow pain, +R occpital scalp pain SKIN: +Abrasions over the L elbow/scalp, +L flank bruises NEURO: No headache, no focal weakness. HEME: No visible bruises PSYCH: Normal mood PFSH ED PFSH: Medical History COPD (chronic obstructive pulmonary disease) WPW (Fegbd-Qyzewxfxb-Nepju syndrome) Surgical History History of cholecystectomy History of PTCA Social History Smoking and tobacco status: current every day smoker Alcohol intake: current Alcohol intake frequency: few times a week History of recent travel: No Physical Exam Narrative: EXAM NARRATIVE: Head: Atraumatic Eyes: PERRL, conjunctiva without injection ENT: Mucous membrane moist NECK: Supple, ROM intact LUNGS: LCTAB, no crackles/rhonchi CV: RRR ABDOMEN: Soft, nontender in all quadrants EXTREMITY: +significantly decreased ROM of the L shoulder due to pain, + mild decreased ROM of the L elbow due to pain, 2+ radial pulse L hand, patient able to perform OK/thumbs up/fist signs with the L hand, sensations intact in the R/M/U distribution L hand. Compartments non-tense in the affected arm. SKIN: +abrasions over the L elbow/R occipital scalp NEURO: Awake and alert, no focal motor deficits PSYCH: Normal mood and affect Course Vital Signs: Vital signs: Vital Signs Temperature 97.1 F L 05/19/21 05:50 Pulse Rate 89 05/19/21 08:47 Respiratory Rate 15 05/19/21 08:47 Blood Pressure 176/114 05/19/21 08:47 Pulse Oximetry 96 05/19/21 08:47 MDM - General Adult MDM Narrative: Medical decision making narrative: Patient is a 56-year-old male seen to the emergency room after an episode of fall x3 days ago. Patient has decreased range of motion of the left shoulder and left elbow due to pain. In addition patient has multiple abrasions over the scalp and left elbow and bruises over the left flank Work-up today includes CT brain, CT T-spine, CT abdomen pelvis, x-ray rib series x-ray chest, x-ray shoulder, and XR elbow to rule out trauma. Intervention: morphine, tylenol for pain On reassessment at 8:10am, imaing studies showed non displaced L 4/5/6 ribs and R 11th rib. Patient received morphine and dilaudid in the ED with significant pain improvement. I offered TDAP today but patient declined. Given age and comorbidites and onset of symptoms x 3 days, patient is stable for outpatient management. Rx percocet TID PRN pain and incentive spirometer. I have given patient follow up with our case folder to be seen outpatient with physical therapy, orthopedics, and PCP. Disposition: Discharge. Patient is given strict return precautions for any worsening pain, fever/chills, difficulty breathing, or any new or concerning complaints Imaging Data^: Other Imaging: Radiologist's impression: [address], [place] [address]RKxa ReportSigned Patient: Jose David Herrera #: [id number]: 1965Acct#:[id number]/Sex: 56 / MADM Date: 05/19/21Loc: ERRoom/Bed:Attending Dr: Ordering Provider/Ordering MD: Citlali Olivares MD Date of Service: 05/19/21 Procedure(s): XR elbow LT 2V 11524 Accession Number(s): [id number] Report Number: [id number] PROCEDURE INFORMATION: Exam: XR Left Elbow Exam date and time: 05/19/2021 6:22 AM Age: 56 years old Clinical indication: Injury or trauma; Fall; Blunt trauma (contusions or hematomas); Left; Injury details: Fell 2 days pain to elbow; Additional info: Rule out FX TECHNIQUE: Imaging protocol: XR Left elbow. Views: 1 or 2 views. COMPARISON: CR Elbow 3 views, LEFT* [id number] 02/11/2015 5:28 PM FINDINGS: Bones/joints: No fractures or dislocations identified. No significant bony abnormality identified. Soft tissues: No subcutaneous gas or radiopaque foreign body identified. XR/XR elbow LT 2V 11351 IMPRESSION: 1. No fractures or dislocations identified. Dictated By:Won Ramon MDSigned By:Won Ramon MDSigned Date/Time:05/19/21 0714DD/ [address] [address]JXbr ReportSigned Patient: Jose David Herrera #: [id number]: 1965Acct#:[id number]/Sex: 56 / MADM Date: 05/19/21Loc: ERRoom/Bed:Attending Dr: Ordering Provider/Ordering MD: Citlali Olivares MD Date of Service: 05/19/21 Procedure(s): XR ribs LT 2V* 77694 Accession Number(s): [id number] Report Number: [id number] PROCEDURE INFORMATION: Exam: XR Left Ribs Exam date and time: 05/19/2021 6:17 AM Age: 56 years old Clinical indication: Injury or trauma; Fall; Rib area, left side; Blunt trauma; Injury details: Fell 2 days ago pain to upper posterior ribs; Prior surgery; Surgery date: 6+ months; Surgery type: Heart x 2; Additional info: Rule out trauma TECHNIQUE: Imaging protocol: XR Left ribs. Views: 2 views. COMPARISON: 1. CR XR chest 2V* [id number] 05/19/2021 6:[address] of the thoracic spine 05/19/2021 FINDINGS: Bones/joints: No fractures or dislocations identified. Left rib fractures seen on concurrent CT of the thoracic spine not visualized on this study. Soft tissues: Unremarkable. XR/XR ribs LT 2V* 26937 IMPRESSION: 1. No fractures or dislocations identified. Left rib fractures seen on concurrent CT of the thoracic spine not visualized on this study. Dictated By:Won Ramonigned By:Won Ramon MDSigned Date/Time:05/19/21716DD/ 4 [address] [place], [place] [address]TKtz ReportSigned Patient: Jose David Herrera #: [id number]: 1965Acct#:[id number]/Sex: 56 / MADM Date: 05/19/21Loc: ERRoom/Bed:Attending Dr: Ordering Provider/Ordering MD: Citlali Olivares MD Date of Service: 05/19/21 Procedure(s): XR chest 2V* 21053 Accession Number(s): [id number] Report Number: [id number] PROCEDURE INFORMATION: Exam: XR Chest Exam date and time: 05/19/2021 6:17 AM Age: 56 years old Clinical indication: Injury or trauma; Fall; Blunt trauma (contusions or hematomas); Injury details: Fell 2 days ago, pain to upper posterior ribs, lt shoulder and lt elbow; Additional info: Fall evaluate for L sided rib trauma TECHNIQUE: Imaging protocol: XR of the chest. Views: 2 views. COMPARISON: CR XR chest 1V portable 76656 11/23/2020 6:42 PM FINDINGS: Lungs: Unremarkable. No consolidation. Pleural spaces: Unremarkable. No pleural effusion. No pneumothorax. Heart/Mediastinum: Unremarkable. No cardiomegaly. Bones/joints: No emergent findings identified. XR/XR chest 2V* 25417 IMPRESSION: 1. No acute findings. Dictated By:Won Ramon MDSigned By:Won Ramon MDSigned Date/Time:05/19/21 0704DD/ 0702 [facility] [place] [id number] Scan ReportSigned Patient: Jose David Herrera #: [id number]: 1965Acct#:[id number]/Sex: 56 / MADM Date: 05/19/21Loc: ERRoom/Bed:Attending Dr: Ordering Provider/Ordering MD: Citlali Olivares MD Date of Service: 05/19/21 Procedure(s): CT abdomen pelvis con 41014 Accession Number(s): [id number] Report Number: [id number] PROCEDURE INFORMATION: Exam: CT Abdomen And Pelvis Without Contrast Exam date and time: 05/19/2021 6:16 AM Age: 56 years old Clinical indication: Injury or trauma; Blunt; Abdominal wall; Prior surgery; Surgery type: Gb; Patient HX: Fall down a flight of stairs 3 days ago. C/O left flank pain with bruising. ; Additional info: L sided flank bruise, after fall TECHNIQUE: Imaging protocol: Computed tomography of the abdomen and pelvis without contrast. Radiation optimization: All CT scans at this facility use at least one of these dose optimization techniques: automated exposure control; mA and/or kV adjustment per patient size (includes targeted exams where dose is matched to clinical indication); or iterative reconstruction. COMPARISON: CT abdomen pelvis w con* [id number] 09/13/2020 8:18 AM RADIATION DOSE METRICS: Total DLP (mGy-cm): 1432.6 FINDINGS: Limitations: Examinations performed without intravenous contrast have limited ability to detect many conditions. Liver: Unremarkable. Gallbladder and bile ducts: Status post cholecystectomy. Pancreas: Unremarkable. Spleen: Many small calcified granulomata in the spleen. Adrenal glands: Unremarkable. Kidneys and ureters: The kidneys are unremarkable. No renal stones identified. No hydronephrosis on either side. Stomach and bowel: No bowel obstruction identified. No diverticulitis identified. Appendix: The appendix is not visualized as a separate structure. No findings to suggest appendicitis. Intraperitoneal space: No free intraperitoneal air identified. No free intraperitoneal fluid identified. Vasculature: No abdominal aortic aneurysm. Lymph nodes: Unremarkable. Urinary bladder: Unremarkable as visualized. Reproductive: Unremarkable as visualized. Bones/joints: Nondisplaced fracture of the right 11th rib posteriorly. Soft tissues: Mild soft tissue swelling lateral to the left hip. CT/CT abdomen pelvis wo con 51785 IMPRESSION: 1. Nondisplaced fracture of the right 11th rib posteriorly. Radiation Dose CTDIVOL = (mGy): DLP = 1432.6 (mGy-cm) Dictated By:Won Ramon MDSigned By:Won Ramon MDSigned Date/Time:05/19/21724DD/ 3 [facility] HospitalJagxwlfoux[address] [place] [id number] Scan ReportSigned Patient: Jose David Herrera #: [id number]: 1965Acct#:[id number]/Sex: 56 / MADM Date: 05/19/21Loc: ERRoom/Bed:Attending Dr: Ordering Provider/Ordering MD: Citlali Olivares MD Date of Service: 05/19/21 Procedure(s): CT thoracic spin wo con* 56668 Accession Number(s): [id number] Report Number: [id number] PROCEDURE INFORMATION: Exam: CT Thoracic Spine Without Contrast Exam date and time: 05/19/2021 6:14 AM Age: 56 years old Clinical indication: Injury or trauma; Fall; Blunt trauma (contusions or hematomas); Patient HX: Patient fell down a flight of stairs 3 days ago. C/O mid back pain. ; Additional info: Rule out vertebral FX, T8-9 tenderness to palpation TECHNIQUE: Imaging protocol: Computed tomography images of the thoracic spine without contrast. Radiation optimization: All CT scans at this facility use at least one of these dose optimization techniques: automated exposure control; mA and/or kV adjustment per patient size (includes targeted exams where dose is matched to clinical indication); or iterative reconstruction. COMPARISON: CT abdomen pelvis w con* [id number] 09/13/2020 8:18 AM RADIATION DOSE METRICS: Total DLP (mGy-cm): 1478.35 FINDINGS: Vertebrae: There is a normal thoracic kyphosis. There is normal alignment of the thoracic spine. No fractures or dislocations identified involving the thoracic spine. Nondisplaced fracture of the left 3rd rib medially on series 2, image 28. Nondisplaced fracture of the left 4th rib medially on series 2, image 38. Nondisplaced fracture of the left 5th rib medially on series 2, image 45. Vertebral body heights are well maintained throughout. Discs/Spinal canal/Neural foramina: Intervertebral disc heights are well maintained throughout. The bony spinal canal is patent. Soft tissues: Unremarkable. CT/CT thoracic spin wo con* 36536 IMPRESSION: 1. Nondisplaced fractures of the left 3rd rib medially, the left 4th rib medially, and the left 5th rib medially. Radiation Dose CTDIVOL = (mGy): DLP = 1478.35 (mGy-cm) Dictated By:Won Ramon MDSigned By:Won Ramon MDSigned Date/Time:05/19/21712DD/ [address] [address]YYjx ReportSigned Patient: Jose David Herrera #: [id number]: 1965Acct#:[id number]/Sex: 56 / MADM Date: 05/19/21Loc: ERRoom/Bed:Attending Dr: Ordering Provider/Ordering MD: Citlali Olivares MD Date of Service: 05/19/21 Procedure(s): XR shoulder LT min 2V* 50153 Accession Number(s): [id number] Report Number: [id number] PROCEDURE INFORMATION: Exam: XR Left Shoulder Exam date and time: 05/19/2021 6:14 AM Age: 56 years old Clinical indication: Injury or trauma; Fall; Blunt trauma (contusions or hematomas); Left; Injury details: Fell 2 days ago, pain to shoulder; Additional info: Rule out dislocation L shoulder TECHNIQUE: Imaging protocol: XR Left shoulder. Views: 2 or more views. COMPARISON: CR XR chest 2V* [id number] 05/19/2021 6:41 AM FINDINGS: Bones/joints: No fractures or dislocations identified. No significant bony abnormality identified. Soft tissues: No subcutaneous gas or radiopaque foreign body identified. XR/XR shoulder LT min 2V* [id number] IMPRESSION: 1. No fractures or dislocations identified. Dictated By:Won Ramon MDSigned By:Won Ramon MDSigned Date/Time:05/19/2118DD/ [facility] [place], [place] [address]DI Scan ReportSigned Patient: Jose David Herrera #: [id number]: 1965Acct#:[id number]/Sex: 56 / MADM Date: 05/19/21Loc: ERRoom/Bed:Attending Dr: Ordering Provider/Ordering MD: Citlali Olivares MD Date of Service: 05/19/21 Procedure(s): CT head wo con* 16392 Accession Number(s): [id number] Report Number: [id number] PROCEDURE INFORMATION: Exam: CT Head Without Contrast Exam date and time: 05/19/2021 6:14 AM Age: 56 years old Clinical indication: Injury or trauma; Fall; Blunt trauma (contusions or hematomas); Prior surgery; Additional info: Rule out brain bleed, fall TECHNIQUE: Imaging protocol: Computed tomography of the head without contrast. Radiation optimization: All CT scans at this facility use at least one of these dose optimization techniques: automated exposure control; mA and/or kV adjustment per patient size (includes targeted exams where dose is matched to clinical indication); or iterative reconstruction. COMPARISON: MRI Cervical Spine w/o* [id number] 04/20/2015 3:14 PM RADIATION DOSE METRICS: Total DLP (mGy-cm): 2101.89 FINDINGS: Brain: Small area of encephalomalacia in the right temporal lobe, consistent with remote insult. No abnormal intra-axial or extra-axial fluid collections are identified. There is no midline shift. No intracranial hemorrhage identified. Ventricles: The ventricles and sulci are mildly and diffusely prominent, compatible with global brain volume loss. Bones/joints: Status post right frontoparietotemporal craniotomy. Sinuses: Marked mucosal thickening of the right maxillary sinus. Status post bilateral nasoantral window formation. Mastoid air cells: Visualized mastoid air cells are well aerated. Soft tissues: Unremarkable. CT/CT head wo con* [id number] IMPRESSION: 1. No acute intracranial process identified. Radiation Dose CTDIVOL = (mGy): DLP = 2101.89 (mGy-cm) Dictated By:Won Ramon MDSigned By:Won Ramon MDSigned Date/Time:05/19/2154DD/ 1 Discharge Plan Discharge Patient Disposition: Home Clinical Impression: Fracture, ribs Condition: Stable Prescriptions: New Percocet 5-325 mg tablet 1 tab PO Q8H PRN (Reason: pain) Qty: 9 RF: 0 No Action terbinafine HCl 250 mg tablet 250 mg PO DAILY Qty: 14 RF: 0 mupirocin 2 % ointment 1 applic topical BID Qty: 22 RF: 1 celecoxib [Celebrex] 200 mg capsule 200 mg PO BID Qty: 60 RF: 4 sofosbuvir-velpatasvir [Epclusa] 400-100 mg tablet 1 tab PO DAILY 84 Days Qty: 28 RF: 2 pantoprazole 40 mg tablet,delayed release (DR/EC) 40 mg PO QAM Qty: 90 RF: 3 gabapentin 600 mg tablet 600 mg PO BID@0800,1800 RF: 0 ProAir HFA 90 mcg/actuation HFA aerosol inhaler 2 puff INHALATION Q4H PRN (Reason: Shortness Of Breath) RF: 0 Discharge Orders: Discharge ED (Routine); Ordered 05/19/21 Ordered By: Citlali Olivares Referrals: Fernando Beckford [Primary Care Provider] - Discharge Diet: Advance as tolerated Discharge Activity: Resume usual activity Patient Instructions: Rib Fracture (ED), Opioid Safety Activity Restrictions/Additional Instructions: Our case folder will have you follow-up with a primary doctor, an orthopedic doctor, and an physical therapist in the next few days. You would be expected to have a phone call with our case folder who will put you on the schedule. Please do not take any alcohol, drive, operate any vehicle while taking the medicine. Please wait 6 hrs to take your first dose of pain medicine as you have had two rounds of IV pain medicine in the ER. 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
--- NOTE | 2021-05-19 06:22 | XRR_ITS ---
PROCEDURE INFORMATION: Exam: XR Left Elbow Exam date and time: 05/19/2021 6:22 AM Age: 56 years old Clinical indication: Injury or trauma; Fall; Blunt trauma (contusions or hematomas); Left; Injury details: Fell 2 days pain to elbow; Additional info: Rule out FX TECHNIQUE: Imaging protocol: XR Left elbow. Views: 1 or 2 views. COMPARISON: CR Elbow 3 views, LEFT* [id number] 02/11/2015 5:28 PM FINDINGS: Bones/joints: No fractures or dislocations identified. No significant bony abnormality identified. Soft tissues: No subcutaneous gas or radiopaque foreign body identified. XR/XR elbow LT 2V 90691 IMPRESSION: 1. No fractures or dislocations identified.
[2021-05-19] MEDS: acetaminophen 500 mg Tablet PO (06:23)
[2021-05-19] MEDS: morphine 4 mg/mL SDV 1 mL IVP (06:24)
[2021-05-19] MEDS: NIFEdipine ER (24 hr) 30 mg Tablet PO (07:13)
[2021-05-19 07:16] VITALS: BP 181/96; PULSE 80; RESP 11; O2SAT 96
--- NOTE | 2021-05-19 07:34 | XR_ITS ---
WS: [id number] Right wrist, AP and lateral views, 05/19/2021 Clinical Data: rule out fx Comparison: None. Findings: No fractures or dislocations are seen. The carpal bones are intact. There is no soft tissue swelling. The distal radius and ulna are not remarkable. XR/XR wrist RT 2V 15690 Impression: Negative right wrist.
--- NOTE | 2021-05-19 07:34 | XR_ITS ---
WS: [id number] Left wrist, AP and lateral views, 05/19/2021 Clinical Data: rule out fx Comparison: None. Findings: No fractures or dislocations are seen. The carpal bones are intact. There is no soft tissue swelling. The distal radius and ulna are not remarkable. XR/XR wrist LT 2V 30825 Impression: Negative left wrist.
[2021-05-19 07:45] VITALS: RESP 21; O2SAT 94
[2021-05-19] MEDS: HYDROmorphone 1 mg/mL INJ 1 mL IVP (07:45)
[2021-05-19 07:47] VITALS: BP 206/100; PULSE 76; RESP 21; O2SAT 94
[2021-05-19 08:33] VITALS: PULSE 81; RESP 17; O2SAT 96
--- NOTE | 2021-05-19 08:33 | PC.NURSE ---
Respiratory in with pt for spirometer education.
[2021-05-19 08:47] VITALS: BP 176/114; PULSE 89; RESP 15; O2SAT 96
--- NOTE | 2021-05-19 10:12 | DCPLANNER ---
automotive sales manager had message to schedule a follow up appointment for patient with ortho. automotive sales manager called the ortho clinic, spoke with Dayami, gave clinic patients information. automotive sales manager was told that patients information would be printed and reviewed. Clinic will call patient with appointment information.
--- NOTE | 2021-05-19 15:10 | DCPLANNER ---
authorization manager also had message to speak with patient about getting established with a primary care physician. authorization manager spoke with patient about getting a primary care physician, patient stated that he does not want a primary care physician, he wants to see a regular doctor, and he wants medication for pain. authorization manager tried to explain to patient that in order to be seen by someone at a pain management clinic, that he would need to be referred to a pain management clinic by a primary care physician, that leather case finisher could not do that from the ER. Patient became upset and hung up on leather case finisher.
--- NOTE | 2021-05-20 15:59 | DCPLANNER ---
Patient had a follow up appointment scheduled for 05.20.[address] Ruby at [facility] - patient did attend appointment.
== END 2021-05-19 08:48 | disposition home or self-care (01) ==
PROVIDERS: Emergency Provider Emergency Medicine; PCP Physician Assistant Medical
DX: S22.42XA Multiple fractures of ribs, left side, initial encounter for closed fracture (principal); W10.8XXA Fall (on) (from) other stairs and steps, initial encounter; J44.9 Chronic obstructive pulmonary disease, unspecified; I45.6 Pre-excitation syndrome; F17.210 Nicotine dependence, cigarettes, uncomplicated
CPT/HCPCS: 70450; 71046; 71100; 72128; 73030; 73070; 73100; 74176; 96374; 96375; 99284; J1170; J2270

== ENCOUNTER → 2021-05-20 11:39 | Outpatient (BNVA) | payer MEDICAID, SELFPAY | PROVIDERS: PCP Physician Assistant Medical; Referring Provider Emergency Medicine; Visit Provider Orthopaedic Surgery | DX: M54.2 Cervicalgia (principal); M25.511 Pain in right shoulder; M47.892 Other spondylosis, cervical region | CPT/HCPCS: 72050; 73030 ==

== ENCOUNTER 2021-05-24 17:36 | Emergency (ER) | payer MEDICAID, SELFPAY ==
[2021-05-24 17:45] VITALS: BP 186/94; PULSE 83; RESP 20; TEMP 36.4; O2SAT 96
--- NOTE | 2021-05-24 18:11 | XRR_ITS ---
PROCEDURE INFORMATION: Exam: XR Chest Exam date and time: 05/24/2021 6:11 PM Age: 56 years old Clinical indication: Injury or trauma; Blunt trauma (contusions or hematomas); Injury details: Fall down stairs on 05/19. Known left 3-5 rib FX; Additional info: Rib fractures TECHNIQUE: Imaging protocol: XR of the chest. Views: 2 views. COMPARISON: CR XR chest 2V* [id number] 05/19/2021 6:41 AM FINDINGS: Lungs: Unremarkable. No consolidation. Pleural spaces: Unremarkable. No pleural effusion. No pneumothorax. Heart/Mediastinum: Unremarkable. No cardiomegaly. Bones/joints: Left rib fractures noted on prior CT are not appreciated on current exam likely secondary to medial location and overlapping osseous structures. The rest of the visualized osseous structures are intact. XR/XR chest 2V* [id number] IMPRESSION: Stable exam, no acute findings.
[2021-05-24 22:07] VITALS: RESP 18; O2SAT 18
[2021-05-24] MEDS: oxyCODONE-APAP 5-325 mg Tablet 1 TAB PO (22:07)
[2021-05-24 22:11] VITALS: BP 203/107; PULSE 75; RESP 18; O2SAT 75
--- NOTE | 2021-05-24 22:13 | PC.NURSE ---
Pt fell on 05/19 and broke 3 ribs on the left side. Pt states that he is still in immense amounts of pain and has taken all of his pain medication. Pt states he has not been able to follow up with a PCP.
--- NOTE | 2021-05-24 22:15 | W.ED.GENADLT ---
HPI - General Adult General: Chief complaint: Fall Stated complaint: Pain along left side and arm Time Seen by Provider: 05/24/21 22:01 History of Present Illness: HPI narrative: 56-year-old male with history of recently diagnosed bilateral rib fractures presents emergency room because of he is out of pain medicine. Patient has me that he has follow-up with Dr. Ruby orthopedics, but does not have any appointment until next week. Patient has no other focal findings on fever/chills, nausea/vomiting, vomiting, difficulty breathing, or any new or concerning complaints Onset:chronic Duration:ongoing Location:home Severity:moderate Review of Systems Narrative: Constitutional: No fever, no chills. HEENT: No vision changes CV: No chest pain, no palpitations PULM: no cough, no dyspnea. +b/l rib pains GI: No abdominal pain, no N/V/D. : No dysuria MSKEL: No muscle pain SKIN: No new rashes, no lesions. NEURO: No headache, no focal weakness. HEME: No visible bruises PSYCH: Normal mood PFSH ED PFSH: Medical History (Updated 05/24/21 @ 22:46 by Citlali Olivares MD) COPD (chronic obstructive pulmonary disease) WPW (Hrygv-Rvfqtsgcz-Intng syndrome) Surgical History History of cholecystectomy History of PTCA Social History Smoking and tobacco status: current every day smoker (1 pack per day ) Alcohol intake: current Alcohol intake frequency: few times a week History of recent travel: No Physical Exam Narrative: EXAM NARRATIVE: Head: Atraumatic Eyes: PERRL, conjunctiva without injection ENT: Mucous membrane moist NECK: Supple, ROM intact LUNGS: LCTAB, no crackles/rhonchi CV: RRR ABDOMEN: Soft, nontender in all quadrants EXTREMITY: Normal ROM SKIN: No rash or erythema NEURO: Awake and alert, no focal motor deficits PSYCH: Normal mood and affect Course Vital Signs: Vital signs: Vital Signs Temperature 97.6 F 05/24/21 17:45 Pulse Rate 74 05/25/21 00:09 Respiratory Rate 18 05/24/21 23:43 Blood Pressure 198/97 05/25/21 00:09 Pulse Oximetry 98 05/25/21 00:09 MDM - General Adult MDM Narrative: Medical decision making narrative: 56-year-old male presented to emergency room with worsening rib pain. X-ray did not show any signs of focal finding. Patient given a prescription for 3 days of pain medicine. Patient is given follow-up with Dr. Ruby. Disposition: Discharge. Patient counseled regarding diagnostic impression, treatment plan. Patient given ED strict return precautions to return for continuation, worsening, or development of new symptoms. Instructed to f/u w/ PCP regarding symptoms today. Patient verbalized understanding. Imaging Data^: Other Imaging: Radiologist's impression: [id number] [place], [place] [address]ZA[address] ReportSigned Patient: Jose David Herrera #: [id number]: 1965Acct#:[id number]/Sex: 56 / MADM Date: 05/24/21Loc: ERRoom/Bed:Attending Dr: Ordering Provider/Ordering MD: Eduardo Galo NP Date of Service: 05/24/21 Procedure(s): XR chest 2V* [id number] Accession Number(s): [id number] Report Number: [id number] PROCEDURE INFORMATION: Exam: XR Chest Exam date and time: 05/24/2021 6:11 PM Age: 56 years old Clinical indication: Injury or trauma; Blunt trauma (contusions or hematomas); Injury details: Fall down stairs on 05/19. Known left 3-5 rib FX; Additional info: Rib fractures TECHNIQUE: Imaging protocol: XR of the chest. Views: 2 views. COMPARISON: CR XR chest 2V* [id number] 05/19/2021 6:41 AM FINDINGS: Lungs: Unremarkable. No consolidation. Pleural spaces: Unremarkable. No pleural effusion. No pneumothorax. Heart/Mediastinum: Unremarkable. No cardiomegaly. Bones/joints: Left rib fractures noted on prior CT are not appreciated on current exam likely secondary to medial location and overlapping osseous structures. The rest of the visualized osseous structures are intact. XR/XR chest 2V* [id number] IMPRESSION: Stable exam, no acute findings. Dictated By:Piotr Noland DOSigned By:Piotr Noland Date/Time:05/24/212007DD/ 06 Discharge Plan Discharge Patient Disposition: Home Clinical Impression: Fracture of rib Condition: Stable Prescriptions: New hydrocodone-acetaminophen 5-300 mg tablet 1 tab PO TID PRN (Reason: pain) 3 Days Qty: 9 RF: 0 No Action terbinafine HCl 250 mg tablet 250 mg PO DAILY Qty: 14 RF: 0 celecoxib [Celebrex] 200 mg capsule 200 mg PO BID Qty: 60 RF: 4 sofosbuvir-velpatasvir [Epclusa] 400-100 mg tablet 1 tab PO DAILY 84 Days Qty: 28 RF: 2 pantoprazole 40 mg tablet,delayed release (DR/EC) 40 mg PO QAM Qty: 90 RF: 3 mupirocin 2 % ointment 1 applic topical BID RF: 0 Percocet 5-325 mg tablet 1 tab PO Q8H PRN (Reason: pain) 7 Days Qty: 30 RF: 0 gabapentin 600 mg tablet 600 mg PO BID@0800,1800 RF: 0 ProAir HFA 90 mcg/actuation HFA aerosol inhaler 2 puff INHALATION Q4H PRN (Reason: Shortness Of Breath) RF: 0 Discharge Orders: Discharge ED (Routine); Ordered 05/24/21 Ordered By: Citlali Olivares Referrals: Fernando Beckford [Primary Care Provider] - Discharge Diet: Advance as tolerated Discharge Activity: Resume usual activity Patient Instructions: Rib Fracture (ED), Opioid Safety Activity Restrictions/Additional Instructions: Please come back to the emergency room if having new or concerning complaints. Do not take your medicine and drive, swim, or drink alcohol. Following with Dr. Ruby for further evaluation of your rib fractures. 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
[2021-05-24 23:30] VITALS: BP 201/98
[2021-05-24 23:43] VITALS: RESP 18; O2SAT 98
[2021-05-24] MEDS: morphine 4 mg/mL SDV 1 mL IM (23:43)
[2021-05-24] MEDS: hyDRALAzine 25 mg Tablet PO (23:44)
--- NOTE | 2021-05-25 00:08 | PC.NURSE ---
Per physician - ok to discharge if pt BP under 200 systolic.
[2021-05-25 00:09] VITALS: BP 198/97; PULSE 74; O2SAT 98
== END 2021-05-25 00:11 | disposition home or self-care (01) ==
PROVIDERS: Emergency Provider Emergency Medicine; PCP Physician Assistant Medical
DX: S22.32XA Fracture of one rib, left side, initial encounter for closed fracture (principal); X58.XXXA Exposure to other specified factors, initial encounter; J44.9 Chronic obstructive pulmonary disease, unspecified; I45.6 Pre-excitation syndrome; F17.210 Nicotine dependence, cigarettes, uncomplicated
CPT/HCPCS: 71046; 96372; 99283; J2270

== ENCOUNTER 2021-05-31 11:12 | Outpatient (CLI) | payer MEDICAID, SELFPAY ==
--- NOTE | 2021-05-31 11:45 | MR_ITS ---
WS: [id number] MRI CERVICAL SPINE NONCONTRAST HISTORY: M54.2 - Cervicalgia COMPARISON: 04/20/2015 Technique: Multiplanar, multisequence noncontrast imaging of the cervical spine. Mild increase in the cervical lordosis. Advanced spondylitic changes throughout the cervical spine bu t most significant at C5-6 and C6-7. Signal within the cervical cord is normal. Visualized posterior fossa is unremarkable. Craniocervical junction, C1 and C2 relationship, odontoid process and soft tissues are normal. Cerebe llar atrophy. C2-C3: Mild osteophytic ridging and central disc protrusion. No stenosis. C3-C4: Small bilateral foraminal osteophytes and tiny central disc protrusion. No stenosis. C4-C5: Mild osteophytic ridging and a central disc protrusion. Mild facet arthritis with mild bilater al foraminal narrowing. No change. C5-C6: Diffuse osteophytic ridging with a central disc protrusion and moderate osteophytes. Disc oste ophytes extend into the foramen. There is moderate central with moderate to severe bilateral foramina l stenosis. Similar to the prior study. C6-C7: Diffuse asymmetric disc bulging and osteophytic ridging. LEFT paracentral disc protrusion defo rming the LEFT lateral thecal sac. Moderate central with severe bilateral foraminal stenosis due to d isc and osteophyte disease. C7-T1: Normal. Paraspinal soft tissue are normal. MR/MR cervical spin wo con* [id number] IMPRESSION: 1. No significant progression of stenosis or degenerative spondylitic changes since 04/20/2015. 2. Moderate central with moderate to severe bilateral foraminal stenosis at C5 -6 due to disc and osteophyte disease. 3. Moderate central with severe bilateral foraminal stenosis at C6-7 due to di sc and osteophyte disease. 4. Mild bilateral foraminal narrowing at C4-5.
== END 2021-05-31 11:13 | disposition home or self-care (01) ==
LOC: RADSHAW 11:17
PROVIDERS: PCP Physician Assistant Medical; Visit Provider Orthopaedic Surgery
DX: M54.2 Cervicalgia (principal); M48.02 Spinal stenosis, cervical region; M25.78 Osteophyte, vertebrae
CPT/HCPCS: 72141

== ENCOUNTER → 2021-06-22 16:25 | Outpatient (BNVA) | payer MEDICAID, SELFPAY | PROVIDERS: PCP Physician Assistant Medical; Visit Provider Orthopaedic Surgery | DX: M47.12 Other spondylosis with myelopathy, cervical region (principal); Z20.822 Contact with and (suspected) exposure to COVID-19 | CPT/HCPCS: 87635 ==

== ENCOUNTER 2021-06-25 08:36 | Day surgery (SDC) | payer MEDICAID, SELFPAY ==
[2021-06-21 10:14] VITALS: BMI 25.1
--- NOTE | 2021-06-21 10:42 | ANES.PREANE2 ---
Pre-Anesthetic Assessment Pre-Anesthetic Assessment: Height/Weight: Height 1.8 m Weight 81.647 kg Proposed Procedure: Operation Date: 06/25/21 10:30 Proposed Procedures p Anterior Cervical Discectomy & Fusion C5/C6/C7 50172 [id number] 59747(x2) 40440 M47.12(Not Applicable) - Abilio Ruby, DO Was Beta Jitendra taken within 24 hours: Yes Was Clonidine taken within 24 hours: N/A Social: Social History: Alcohol and Tobacco Packs per day: 1 Exam: Pre-Anes Outpt Exam: alert, oriented x 3, No clear to auscultation bilaterally (Mild expiratory wheeze) and regular rate & rhythm Airway: Submandibular: WNL Cervical ROM: Other (Moderately Limited) MP: 2 Dentition: Other (No teeth) Pulmonary: Pulmonary: COPD CV/HEM: CV/HEM: Arrythmia (Hx WPW s/p EP procedure) and HTN GI: GI: GERD Metabolic: Metabolic: DM Neuropsych: Neuropsych: CVA and Neuropathy Comments: No residual deficits from CVA Anesthetic Plan: ASA status: 3 Anesthesia: Anesthesia Evaluation and General Risk of > 500 ml blood loss (7ml/kg in children): No PFSH Anesthesia PFSH: Medical History COPD (chronic obstructive pulmonary disease) Psychiatric care WPW (Ljcqa-Cglgexcfl-Wdtjb syndrome) Surgical History History of cholecystectomy History of PTCA Social History Alcohol intake: current Alcohol intake frequency: few times a week History of recent travel: No Data Anesthesia Cardiac Studies: No Data to Display
[2021-06-25] VITALS (9 sets, daily range): BP systolic 100–167; BP diastolic 63–97; PULSE 72–80; RESP 12–18; TEMP 36.4–36.7; O2SAT 95–98
--- NOTE | 2021-06-25 | SCC_ITS ---
Procedure Done: 1. Anterior diskectomy C5/6 2. Anterior discectomy C6/7 3. Insertion of cage C5/6 4. Insertion of Cage C6/7 5. Instrumentation with anterior plate from C5-C7 6. Use of allograft 18.3 seconds of fluoroscopic guidance, for a cumulative dose of 2.29 mGy, was provided to Dr. Ruby by the radiology department. C-arm images of the cervical spine were saved for the patient's permanent record. TRED
[2021-06-25] MEDS: sodium chloride 0.9% 1,000 ML 30 ML IV (09:22)
--- NOTE | 2021-06-25 09:49 | P.ANESUD_ITS ---
Pre-Anesthetic Update Pre-Anesthetic Assessment: Date of Surgery/Procedure: 06/25/21 Preop Shayy gnosis: Cervical spondylosis w/myelopathy Proposed Procedure: Operation Date: 06/25/21 13:20 Proposed Procedures p Anterior Cervical Discectomy & Fusion C5/C6/C7 40689 73011 88391(x2) 14765 M47.12(Not Applicable) - Abilio Ruby, DO Any changes to Pre-Anesthetic Assessment?: No Last Intake: Intake Last Liquid Date 06/25/21 Last Liquid Time 07:00 Last Solid Date 06/24/21 Last Solid Time 22:00 Vitals: Temperature 98.1 F 06/25/21 08:43 Pulse Rate 78 06/25/21 08:43 Pulse Rhythm 06/25/21 08:45 Pulse Strength 3+ Normal 06/25/21 08:45 Respiratory Rate 18 06/25/21 08:43 Blood Pressure 167/97 06/25/21 08:43 Blood Pressure Beronica n 120 06/25/21 08:43 Pulse Oximetry 95 06/25/21 08:43 Oxygen Delivery Me thod 06/25/21 08:45 Exam: Pre-Anes Outpt Exam: alert, oriented x 3, clear to auscultation bilaterally and regular rate & rhythm Cardiac Studies: No Data to Display
--- NOTE | 2021-06-25 13:37 | W.PM.OPSUD ---
Surgery/Procedure H&P Update DATE OF PROCEDURE: June 25, 2021 DATE H&P PERFORMED: 06/10/21 H&P UPDATE INFORMATION: I have reviewed H&P completed within last 30 days, I have examined patient prior to procedure and No changes to prior documentation PREOP DIAGNOSIS: Cervical spondylosis w/myelopathy PLANNED PROCEDURE: Operation Date: 06/25/21 13:20 Proposed Procedures p Anterior Cervical Discectomy & Fusion C5/C6/C7 77167 [id number] 73565(x2) 63740 M47.12(Not Applicable) - Abilio Ruby DO
--- NOTE | 2021-06-25 13:41 | PM.OP ---
Operative Report Date of procedure: June 25, 2021 Pre-op Diagnosis: Cervical spondylosis w/myelopathy Post-op diagnosis: same Procedure Done: 1. Anterior diskectomy C5/6 2. Anterior discectomy C6/7 3. Insertion of cage C5/6 4. Insertion of Cage C6/7 5. Instrumentation with anterior plate from C5-C7 6. Use of allograft Surgeon: Abilio Ruby Etl Informatic[employer] Developer: Daniel Arvizu Etl [employer]form[employer] Developer: The surgical coordinator, Daniel Arvizu, PAC was needed for his expertise under the microscope. He was important and necessary throughout the procedure to complete in a safe and timely manner. He assisted with patient positioning prepping and draping tissue retraction suctioning of the operative field protection of the dural sac and tissue closure Anesthesia: General Estimated blood loss (mL): 10 Condition: stable Disposition: PACU Procedure: 1. Anterior diskectomy C5/6 2. Anterior discectomy C6/7 3. Insertion of cage C5/6 4. Insertion of Cage C6/7 5. Instrumentation with anterior plate from C5-C7 6. Use of allograft The patient was taken to the operating room, where he underwent general endotracheal anesthesia without complications. He was then positioned supine on the operating table, and all areas of impingement were well padded. The arms were carefully padded and tucked at his sides. A roll was placed between the shoulder blades.. An x-ray was done to determine the appropriate level for the skin incision. The entire neck was then sterilely prepped and draped in the usual fashion. Neuromonitoring was attached prior to prepping. A transverse skin incision was made and carried down to the platysma muscle. This was then split in line with its fibers. Blunt dissection was carried down medial to the carotid sheath and lateral to the trachea and esophagus until the anterior cervical spine was visualized. A needle was placed into a disc and an x-ray was done to determine its location. The longus colli muscles were then elevated bilaterally with the electrocautery unit. Self-retaining retractors were placed deep to the longus colli muscle. Attention was brought to the C5/6 level that was confirmed on x-ray.. The microscope was then brought in. A radical anterior discectomies were performed at C5/6. This included complete removal of the anterior annulus, nucleus, and posterior annulus. The posterior longitudinal ligament was removed as were the posterior osteophytes. Foraminotomies were then accomplished bilaterally. This was done using a high speed marjorie, kerrison rongeurs and curretes Once all of this was accomplished, the curved currette was used to check for any residual compression. The central canal was wide open as were the foramen. A high-speed bur was used to remove the cartilaginous endplates above and below the interspace. Bleeding cancellous bone was exposed. The disc space were measured and appropriate size cage were placed sterilely onto the field. Allograft graft was packed into the cages. The cage was then placed and there was good juxtaposition against the bleeding decorticated surfaces and good distraction of each interspace. Attention was brought to the next interspace. The disk space was then distracted. The microscope was then brought in. A radical anterior discectomies were performed at C6/7. This included complete removal of the anterior annulus, nucleus, and posterior annulus. The posterior longitudinal ligament was removed as were the posterior osteophytes. Foraminotomies were then accomplished bilaterally. This was done using a high speed marjorie, kerrison rongeurs and curretes Once all of this was accomplished, the curved currette was used to check for any residual compression. The central canal was wide open as were the foramen. A high-speed bur was used to remove the cartilaginous endplates above and below the interspace. Bleeding cancellous bone was exposed. The disc space were measured and appropriate size cage were placed sterilely onto the field. Allograft graft was packed into the cages. The cage was then placed and there was good juxtaposition against the bleeding decorticated surfaces and good distraction of each interspace. Attention was brought to the next interspace. The [place] pins were removed. Bone wax was used to prevent any bleeding from occurring at the pin sites. The appropriate size anterior cervical locking plate was chosen and bent into gentle lordosis. One screws were then placed into each of the vertebral bodies at C5, C6,C7. There was excellent purchase. A final x-ray was done confirming good position of the hardware and Cages. The locking screws were then applied, also with excellent purchase. Following a final copious irrigation, there was good hemostasis and no dural leaks. The carotid pulse was strong. The wounds were then closed in layers using 2-0 Vicryl suture for the platysma muscle, 2-0 Vicryl suture for the subcutaneous tissue, and 4-0 monocryl suture in a subcuticular skin closure. Glue was placed followed by application of a sterile dressing. The drain was hooked to bulb suction. A soft collar was applied. The patient was then carefully returned to the supine position on his hospital bed where he was reversed and extubated and taken to the recovery room having tolerated the procedure well.
--- NOTE | 2021-06-25 13:44 | XR_ITS ---
WS: [id number] Exam: XR cervical spine 3V* [id number] Date/Time of Exam: 06/25/2021 1:44 PM Reason For Exam: ACDF There is anterior fusion of the cervical spine from C5 to C7. There are disc spacers at C5-6 and C6-7 . The fusion is in satisfactory alignment. XR/XR cervical spine 3V* [id number] IMPRESSION: 1. Anterior C-spine fusion in satisfactory alignment.
--- NOTE | 2021-06-25 14:16 | SUR.PHASEI ---
PT AWAKES TO VOICE , VERBALIZES APPROPRIATELY, VSS NECK COLLAR IN PLACE DRESSING TO ANTERIOR NECK D/I , PT MOVES BILAT TOES TO COMMAND, RESP EVEN AND UNLABORED PT SLEEPS IF NOT DISTURBED PLACED ON 3NC SATS 95%
--- NOTE | 2021-06-25 14:35 | SUR.PHASEI ---
1433 PT AWAKES EASILY TO VOICE, C/O OF BILAT SHOULDERS (STIFF , SORE) WARM BLANKETS TO POST NECK AND TO SUPPORT SHOULDERS, PT REQUESTS BLACK COFFEE TO SIP ON , HANDOFF AT BEDSIDE TO MIRIAM DORADO.
--- NOTE | 2021-06-25 15:32 | ANE.PACU2 ---
Inpatient post-anesthesia follow up: Airway intact: Yes Vital signs: Temperature 97.8 F Pulse Rate 74 Respiratory Rate 12 Blood Pressure 152/91 Pulse Oximetry 96 Oxygen Delivery Me thod Nasal Cannula Oxygen Flow Rate 3 Fraction of Inspir ed Oxygen Hydration adequate: Yes Nausea and vomiting: No Pain level: 3 Mental status: Baseline
== END 2021-06-25 15:50 | disposition home or self-care (01) ==
PROVIDERS: PCP Physician Assistant Medical; Visit Provider Orthopaedic Surgery
PROC: 0RB30ZZ Excision of Cervical Vertebral Disc, Open Approach (ICD-10-PCS; CPT 22551; principal; 2021-06-25 13:10)
DX: M47.12 Other spondylosis with myelopathy, cervical region (principal); J44.9 Chronic obstructive pulmonary disease, unspecified; Z98.61 Coronary angioplasty status; F17.200 Nicotine dependence, unspecified, uncomplicated
CPT/HCPCS: 20930; 22551; 22552; 22845; 22853; 72040; 76000; 97760; C1713; C9359; J0690; J1100; J1170; J2370; J2405; J2704; J3010; J3490; J7030; L0174

== ENCOUNTER → 2021-08-12 14:45 | Outpatient (BNVA) | payer MEDICAID, SELFPAY | PROVIDERS: PCP Physician Assistant Medical; Visit Provider Orthopaedic Surgery | DX: Z48.89 Encounter for other specified surgical aftercare (principal) | CPT/HCPCS: 72040 ==

== ENCOUNTER 2021-08-22 00:46 | Emergency (ER) | payer MEDICAID, SELFPAY ==
[2021-08-22 00:48] VITALS: BP 135/82; PULSE 100; RESP 22; TEMP 36.6; O2SAT 92; BMI 24.4
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
--- NOTE | 2021-08-22 01:13 | ECG_ITS ---
[facility] Test Date: 2021-08-22 Pat Name: Marcio Herrera Department: Room: Gender: Male Bods Developer: : 1965 Requested By: Eduardo Potts Order Number: [id number] Calvin MD: Dhruv Carrion M.D. Measurements Intervals [place] Rate: 103 P: 81 ID: [id number] QRS: 87 QRSD: 132 T: 265 QT: 385 QTc: 506 Interpretive Statements ELECTRONIC VENTRICULAR PACEMAKER ABNORMAL RHYTHM ECG Compared to ECG 11/23/2020 22:07:42 Sinus tachycardia no longer present Ventricular premature complex(es) no longer present T-wave abnormality no longer present Electronically Signed On 08-24-2021 23:42:41 RED CAP by Dhruv Carrion M.D. [id number]
[2021-08-22] MEDS: ondansetron 2 mg/ML SDV 2 mL 4 MG IVP (01:27)
[2021-08-22] MEDS: sodium chloride 0.9% 1,000 ML 999 ML IV (01:29)
[2021-08-22 01:43] VITALS: BP 137/87; PULSE 103; RESP 19; O2SAT 93
[2021-08-22 02:24] LABS: Basophils % 0.4 %; Eosinophils # 0.1 10^3/uL (0.0-0.8); Eosinophils % 1.2 %; Hematocrit 44.2 % (42.0-52.0); Lymphocytes # 3.8 10^3/uL (0.8-4.8); Mean Corpuscular HGB Conc 33.9 g/dL (30.0-36.0); Mean Corpuscular Hemoglobin 30.9 pg (28.0-34.0); Mean Corpuscular Volume 91.1 fl (80-94); Monocytes # 0.6 10^3/uL (0.2-0.9); Neutrophils # 4.26 10^3/uL (1.8-7.7); Nucleated Red Blood Cells % 0 %; Platelet Count 195 10^3/cmm (130-400); Red Blood Count 4.85 10^6/uL (4.1-5.3); Red Cell Distribution Width 14.5 % (12.1-15.1); White Blood Count 8.9 10^3/uL (4.0-10.0)
[2021-08-22 03:09] LABS: Troponin T (5th) Once 26 ng/L (0-15)
[2021-08-22 03:18] LABS: Alanine Aminotransferase 17 U/L (0-41); Alkaline Phosphatase 85 IU/L (40-130); Anion Gap 15.6 (5-19); Aspartate Amino Transferase 34 U/L (0-40); Blood Urea Nitrogen 11 mg/dL (6-20); Calcium 7.7 mg/dL (8.5-10.5); Carbon Dioxide 23 mmol/L (22-29); Chloride 102 mmol/L (98-107); Globulin 2.3 g/dL (1.3-4.6); Glomerular Filtration Rate 99.6 mL/min (90-130); Glucose 131 mg/dL (65-115); NT Pro B Type Natriuretic Pept 132 pg/mL (0-125); Osmolality Calculated 285 mOsm/kg (285-295); Potassium 3.6 mmol/L (3.5-5.1); Sodium 137 mmol/L (136-145); Total Bilirubin 0.3 mg/dL (0.15-1.2); Total Protein 6.3 g/dL (6.6-8.7)
[2021-08-22 03:24] LABS: Alcohol Level 321 mg/dL (0-10)
[2021-08-22 03:49] LABS: Acetaminophen < 5.0 ug/mL (10-30); Salicylate < 0.3 mg/dL (3-10); Thyroid Stimulating Hormone 0.89 uIU/mL (0.27-4.20)
[2021-08-22 04:25] VITALS: BP 142/69; PULSE 101; RESP 21; O2SAT 90
--- NOTE | 2021-08-22 05:09 | PC.NURSE ---
Patient Refusal Patient refuses to leave on pulse ox and BP cuff. Patient repeatedly removes vital monitor devices after this nurse has requested and educated on the importance.
[2021-08-22 05:17] LABS: Amphetamines Screen Urine Positive (Negative); Barbiturates Screen Urine Negative (Negative); Benzodiazepines Screen Urine Negative (Negative); Cocaine Screen Urine Negative (Negative); Opiate Screen Urine Positive (Negative); PCP Screen Urine Negative (Negative); THC Screen Urine Negative (Negative)
[2021-08-22 06:16] VITALS: BP 129/98; PULSE 110; RESP 18; O2SAT 89
== END 2021-08-22 10:17 | disposition home or self-care (01) ==
PROVIDERS: Nurse Practitioner Family; Emergency Provider Emergency Medicine; PCP Physician Assistant Medical
DX: F10.129 Alcohol abuse with intoxication, unspecified (principal); Y90.8 Blood alcohol level of 240 mg/100 ml or more; J44.9 Chronic obstructive pulmonary disease, unspecified; I45.6 Pre-excitation syndrome
CPT/HCPCS: 71045; 80053; 80306; 80307; 83880; 84443; 84484; 85025; 93005; 96361; 96374; 96375; 99284; J2405; J3411; J7030

== ENCOUNTER → 2021-10-14 08:09 | Outpatient (BNVA) | payer MEDICAID, SELFPAY | PROVIDERS: PCP Physician Assistant Medical; Visit Provider Physician Assistant | DX: Z48.89 Encounter for other specified surgical aftercare (principal); Z98.1 Arthrodesis status | CPT/HCPCS: 72040 ==

== ENCOUNTER 2022-02-05 00:10 | Emergency (ER) | payer MEDICAID, SELFPAY ==
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
[2022-02-05 00:18] VITALS: BP 112/67; PULSE 84; RESP 20; TEMP 36.7; O2SAT 93; BMI 25.7
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
[2022-02-05 00:38] LABS: Basophils # 0.1 10^3/uL (0.0-0.1); Basophils % 0.6 %; Eosinophils # 0.2 10^3/uL (0.0-0.8); Eosinophils % 2.4 %; Hematocrit 45.5 % (42.0-52.0); Hemoglobin 15.5 g/dL (11.7-16.6); Lymphocytes # 4.6 10^3/uL (0.8-4.8); Lymphocytes % 52.1 %; Mean Corpuscular HGB Conc 34.1 g/dL (30.0-36.0); Mean Corpuscular Hemoglobin 31.8 pg (28.0-34.0); Mean Corpuscular Volume 93.4 fl (80-94); Mean Platelet Volume 9.8 fL (7.4-10.4); Monocytes # 0.4 10^3/uL (0.2-0.9); Monocytes % 4.3 %; Neutrophils # 3.51 10^3/uL (1.8-7.7); Neutrophils % 40.1 %; Nucleated Red Blood Cells % 0 %; Platelet Count 198 10^3/cmm (130-400); Red Blood Count 4.87 10^6/uL (4.1-5.3); Red Cell Distribution Width 13.2 % (12.1-15.1); White Blood Count 8.8 10^3/uL (4.0-10.0)
[2022-02-05] MEDS: folic acid 1 MG, multivitamin inj 10 ML, thiamine 100 MG in sodium chloride 0.9% 1,000 ML 252.8 MG IV (00:46)
[2022-02-05 00:51] LABS: Alanine Aminotransferase 17 U/L (0-41); Albumin Level 4.6 g/dL (3.5-5.2); Alkaline Phosphatase 78 IU/L (40-130); Aspartate Amino Transferase 30 U/L (0-40); Blood Urea Nitrogen 11 mg/dL (6-20); Calcium 8.6 mg/dL (8.5-10.5); Carbon Dioxide 22 mmol/L (22-29); Chloride 99 mmol/L (98-107); Creatinine Clr Calc Pharmacy 100.8629; Globulin 2.7 g/dL (1.3-4.6); Glucose 105 mg/dL (65-115); Osmolality Calculated 278 mOsm/kg (285-295); Sodium 134 mmol/L (136-145); Total Bilirubin 0.2 mg/dL (0.15-1.2); Total Protein 7.3 g/dL (6.6-8.7)
[2022-02-05 01:01] LABS: Alcohol Level 349 mg/dL (0-10); Anion Gap 16.9 (5-19); Potassium 3.9 mmol/L (3.5-5.1)
[2022-02-05 01:30] VITALS: BP 151/80; PULSE 80; RESP 19
[2022-02-05 02:00] VITALS: BP 112/82; PULSE 76; RESP 20; O2SAT 94
[2022-02-05 02:30] VITALS: BP 161/90; PULSE 72; RESP 16
[2022-02-05 03:00] VITALS: BP 132/76; PULSE 80; RESP 14; O2SAT 91
== END 2022-02-05 03:34 | disposition home or self-care (01) ==
PROVIDERS: Emergency Provider Emergency Medicine
DX: S09.90XA Unspecified injury of head, initial encounter (principal); S22.31XA Fracture of one rib, right side, initial encounter for closed fracture; W19.XXXA Unspecified fall, initial encounter; F10.129 Alcohol abuse with intoxication, unspecified; Y90.8 Blood alcohol level of 240 mg/100 ml or more
CPT/HCPCS: 70450; 71250; 72125; 74176; 80053; 80307; 85025; 96374; 99283; J3411; J3490; J7030

== ENCOUNTER 2023-11-18 05:26 | Inpatient (IN) | payer MEDICAID, SELFPAY ==
[2023-11-18] VITALS (14 sets, daily range): BP systolic 92–132; BP diastolic 61–88; PULSE 88–104; RESP 16–23; TEMP 36.6; O2SAT 91–100; BMI 26.0
--- NOTE | 2023-11-18 05:28 | XRR_ITS ---
PROCEDURE INFORMATION: Exam: XR Chest Exam date and time: 11/18/2023 5:31 AM Age: 58 years old Clinical indication: Other: Post-cardiac arrest TECHNIQUE: Imaging protocol: Radiologic exam of the chest. Views: 1 view. COMPARISON: CT chest abdpel [id number] 02/05/2022 12:31 AM FINDINGS: Lungs: Unremarkable. No consolidation. Pleural spaces: Unremarkable. No pleural effusion. No pneumothorax. Heart/Mediastinum: Unremarkable. No cardiomegaly. Bones/joints: Unremarkable. XR/XR chest 1V portable [id number] IMPRESSION: No acute findings.
--- NOTE | 2023-11-18 05:30 | CTR_ITS ---
PROCEDURE INFORMATION: Exam: CTA Chest With Contrast Exam date and time: 11/18/2023 5:51 AM Age: 58 years old Clinical indication: Other: Syncope/post-cardiac arrrest; Prior surgery; Surgery date: 6+ months; Surgery type: Gb heart stent TECHNIQUE: Imaging protocol: Computed tomographic angiography of the chest with contrast. Exam focused on the arteries. 3D rendering (Not supervised by radiologist): MIP and/or 3D reconstructed images were created by the technologist. Radiation optimization: All CT scans at this facility use at least one of these dose optimization techniques: automated exposure control; mA and/or kV adjustment per patient size (includes targeted exams where dose is matched to clinical indication); or iterative reconstruction. Contrast material: OMNI 350; Contrast volume: 69 ml; Contrast route: INTRAVENOUS (IV); COMPARISON: CT chest abdpel [id number] 02/05/2022 12:31 AM RADIATION DOSE METRICS: Total DLP (mGy-cm): 375.07 FINDINGS: Pulmonary arteries: Normal. No pulmonary emboli. Aorta: Unremarkable. No aortic aneurysm. No aortic dissection. Lungs: Unremarkable. No consolidation. No masses. Pleural spaces: Unremarkable. No pneumothorax. No pleural effusion. Heart: Unremarkable. No cardiomegaly. No pericardial effusion. Lymph nodes: Visible central lymph nodes are not pathologically enlarged. Gallbladder and bile ducts: Cholecystectomy. Spleen: S a the a pleen: Calcified splenic granuloma. Bones/joints: Unremarkable. No acute fracture. Soft tissues: Unremarkable. CT/CT angio chest PE prot [id number] IMPRESSION: No acute findings.
--- NOTE | 2023-11-18 05:31 | ED_ITS ---
Documented by User: George Bloom MD 11/18/23 05:46 HPI - Chest Pain 2 General: Chief Complaint: Chest Pain Stated Complaint: POST CODE Time Seen by Provider: 11/18/23 05:28 History of Present Illness: 58-year-old male presents to the emergen cy department via [facility]. [facility] states that the family members said that approximately 4 AM patient got up to go to the bathroom and then had a syncopal episode where he became unresponsive and EMS stated that upon their arrival the patient initial cardiac rhythm was atrial fibrillation he received unsynchronized 200 J shock CPR ensued and continued, patient received a milligram of epinephrine and a second 200 J shock with ROSC. Patient initially had a IO to the right upper extremity that got dislodged. EMS personnel state that the patient became alert and oriented x 4. Upon arrival to the emergency department the patient is awake alert and oriented does complain of some left-sided lower jaw pain. He is awake alert and oriented x 4 complains of no chest pain or shortness of breath at present. His vital signs are stable. Emergency EMS states that the patient's twelve-lead EKG did demonstrate a left bundle branch block. Patient does have a past medical history of COPD, Unosg-Unzulmyqx-Rzcia, hypertension, anterior discectomy of C5/6 and C6/7 with cage insertion and C5/6 and insertion of cage at C6-C7. Associated symptoms: Reports syncope Review of Systems 2 General: Reports: 10 or more systems reviewed and unremarkable except in HPI and below Card: Reports: chest pain, irregular heart rhythm and syncope [facility] ED 2 PFS: Medical History (Updated 11/18/23 @ 07:04 by Raffaele Pacheco DO) COPD (chronic obstructive pulmonary disease) WPW (Hvxcw-Augkufcku-Mldvo syndrome) Surgical History History of cholecystectomy History of PTCA Social History Smoking and tobacco/nicotine status: current every day tobacco/nicotine user Alcohol intake: current Alcohol intake frequency: few times a week Physical Exam 2 Narrative: EXAM NARRATIVE: Constitutional: the patient appears well nourished and with normal development. Vital signs reviewed as documented. GCS 15, alert and oriented x 4-person, place, time and situation. HENMT: Normocephalic, atraumatic. External ears normal appearance without drainage. Nose without drainage, normal appearance. Mucus membranes moist. Neck is supple, No jugular venous distension, trachea is midline, no appreciable carotid bruits. No lymphadenopathy. No meningeal signs. Flexion, extension and lateral rotation is without pain. Eyes: Pupils are equal, round, reactive to light and accommodation. No scleral icterus. Extra-ocular movement are intact. Thorax is symmetrical and with equal rise and fall with respirations. Resp: Lungs are clear to auscultation. No wheezes, rales, crackles or ronchi at present. Cardio: Sinus tachycardia with a left bundle branch block. Positive S1, S2. No appreciable murmurs, rubs or gallops. GI: Abdominal exam reveals normal bowel sounds to all quadrants. No organomegaly. No obvious palpable masses noted. No hepatomegally appreciated. Soft, non-tender to palpation. Extremity: Extremities are non-edematous and both femoral and pedal pulses are 2+ and equal bilaterally. Moves all extremities well, sensation in all extremities. Patient does have right upper extremity-deltoid puncture wound where a interosseous access was dislodged prior to arrival in the emergency department. Neuro: Alert and oriented x4, person, place, time and situation. Cranial nerves II through XII are grossly intact, there is no focal neurological deficits that I can appreciate at present. Sensation intact to all extremities. 2-point discrimination intact. Light touch intact to all extremities. Motor strength in the upper and lower extremities are equal and bilateral 5/5. Psych: Cooperative, calm, normal thought process, appropriate judgment. Skin: No lesions, rashes. No gross abnormalities noted. Back: Symmetrical, no obvious deformity, No CVA tenderness Course 2 Vital Signs: Vital signs: Vital Signs Temperature 97.8 F 11/18/23 05:26 Pulse Rate 93 11/18/23 07:45 Respiratory Rate 20 H 11/18/23 06:00 Blood Pressure 100/70 11/18/23 07:45 Pulse Oximetry 99 11/18/23 07:45 Oxygen Delivery Me thod Nasal Cannula 11/18/23 07:45 Oxygen Flow Rate 2 11/18/23 07:45 MDM - Chest Pain Medical Decision Making I have discussed the patient's case with the on-coming physician <Dr. Pacheco > and they have assumed care of the patient. We have discussed the current lab/radiographic results that have been resulted and the pending tests. Medical Records I reviewed the patient's medical records. Lab Data 11/18/23 05:36 11/18/23 05:36 Radiology Impressions Chest X-Ray 11/18/23 05:28 IMPRESSION: No acute findings. Chest CTA 11/18/23 05:30 IMPRESSION: No acute findings. Laboratory Results WBC 9.12 10^3/uL (3.29-11.43) 11/18/23 05:36 RBC 4.57 10^6/uL (3.85-5.65) 11/18/23 05:36 Hgb 13.60 g/dL (11.27-16.99) 11/18/23 05:36 Hct 41.3 % (37-53) 11/18/23 05:36 MCV 90.4 fl (82-101) 11/18/23 05:36 MCH 29.8 pg (27-33) 11/18/23 05:36 MCHC 32.9 g/dL (30-55) 11/18/23 05:36 RDW 15.0 % (12.1-15.1) 11/18/23 05:36 Plt Count 258 10^3/cmm (157-399) 11/18/23 05:36 MPV 8.7 fL (7.4-10.4) 11/18/23 05:36 Neut % (Auto) 76.6 % 11/18/23 05:36 Lymph % (Auto) 16.8 % 11/18/23 05:36 [place] % (Auto) 3.4 % 11/18/23 05:36 Eos % (Auto) 0.5 % 11/18/23 05:36 Baso % (Auto) 0.3 % 11/18/23 05:36 Neut # (Auto) 6.98 10^3/uL (1.8-7.7) 11/18/23 05:36 Lymph # (Auto) 1.5 10^3/uL (0.8-4.8) 11/18/23 05:36 [place] # (Auto) 0.3 10^3/uL (0.2-0.9) 11/18/23 05:36 Eos # (Auto) 0.1 10^3/uL (0.0-0.8) 11/18/23 05:36 Baso # (Auto) 0.0 10^3/uL (0.0-0.1) 11/18/23 05:36 Nucleated RBC % (auto) 0 % 11/18/23 05:36 Nucleated RBCs # 0.0 /100WBC 11/18/23 05:36 PT 14.10 SECONDS (12.1-14.9) 11/18/23 05:36 INR 1.05 (0.8-1.2) 11/18/23 05:36 APTT 29.8 SECONDS (23.9-36.7) 11/18/23 05:36 Sodium 142 mmol/L (136-145) 11/18/23 05:36 Potassium 3.8 mmol/L (3.5-5.1) 11/18/23 05:36 Chloride 104 mmol/L (98-107) 11/18/23 05:36 Carbon Dioxide 20 mmol/L (22-29) L 11/18/23 05:36 Anion Gap 21.8 (5-19) H 11/18/23 05:36 BUN 15 mg/dL (6-20) 11/18/23 05:36 Creatinine 1.1 mg/dL (0.7-1.2) 11/18/23 05:36 GFR Calculation 68.5 mL/min (90-130) L 11/18/23 05:36 Glucose 236 mg/dL (65-115) H 11/18/23 05:36 POC Glucose 255 mg/dL (70-110) H 11/18/23 05:43 Calculated Osmolality 302 mOsm/kg (285-295) H 11/18/23 05:36 Calcium 8.6 mg/dL (8.5-10.5) 11/18/23 05:36 Total Bilirubin 0.2 mg/dL (0.15-1.2) 11/18/23 05:36 AST 69 U/L (0-40) H 11/18/23 05:36 ALT 37 U/L (0-41) 11/18/23 05:36 Alkaline Phosphatase 90 U/L (40-130) 11/18/23 05:36 Troponin T Baseline 482 ng/L (0-15) H* 11/18/23 05:36 NT-Pro-B Natriuret Pep 1163 pg/mL (0-125) H 11/18/23 05:36 Total Protein 6.6 g/dL (6.6-8.7) 11/18/23 05:36 Albumin 3.9 g/dL (3.5-5.2) 11/18/23 05:36 Globulin 2.7 g/dL (1.3-4.6) 11/18/23 05:36 Urine Color Yellow (Yellow) 11/18/23 06:01 Urine Appearance Cloudy (CLEAR) A 11/18/23 06:01 Urine pH 6 (5-7) 11/18/23 06:01 Ur Specific [place] 1.025 (1.005-1.030) 11/18/23 06:01 Urine Protein 3+ (Negative) H 11/18/23 06:01 Urine Glucose (UA) 1+ (Normal) H 11/18/23 06:01 Urine Ketones Negative (Negative) 11/18/23 06:01 Urine Blood 2+ (Negative) H 11/18/23 06:01 Urine Nitrate Negative (Negative) 11/18/23 06:01 Urine Bilirubin Neg (Negative) 11/18/23 06:01 Urine Urobilinogen Neg mg/dL (Negative) 11/18/23 06:01 Ur Leukocyte Esterase Negative (Negative) 11/18/23 06:01 Urine RBC 5-10 /hpf (0-2) H 11/18/23 06:01 Urine WBC 25-40 /hpf (0-5) H 11/18/23 06:01 Ur Squamous Epith Cells 0-4 /hpf (0-5) H 11/18/23 06:01 Amorphous Sediment Trace /hpf 11/18/23 06:01 Urine Bacteria 2+ /hpf (NONE) H 11/18/23 06:01 Hyaline Casts 0-4 /lpf H 11/18/23 06:01 Coarse Granular Casts 0-4 /lpf H 11/18/23 06:01 Urine Mucus 1+ /hpf 11/18/23 06:01 Urine Sperm 1+ /hpf 11/18/23 06:01 All radiology interpretation(s) finalized by discharge EKG Data EKG 1: Interpretation: Twelve-lead EKG obtained at 0 538 and reviewed at 0 531 demonstrates sinus tachycardia with a left bundle branch block, ventricular rate of 104 bpm, TX interval 191, QRS duration 142, QT 416 QTc 477. Comparison to previous EKG from 08/22/2021 demonstrates previous left bundle branch block and relatively unchanged from his previous EKG. Discharge Plan Discharge Patient Disposition: Admitted As Inpatient Admit Provider: Ryan Ramon Clinical Impression: Cardiac arrest, History of Zihyd-Nqpllfabr-Obqho (WPW) syndrome, Cystitis, Dental caries Condition: Stable Sign Out Sign Out Data: Patient Sign Out occurred on 11/18/23 at 06:13. Patient's care was discussed, and care was transferred from George Bloom MD to Raffaele Pacheco DO. Coding Level of Care Code ED [employer]der [employer] for Chg Fwd Documented by User: Raffaele Pacheco DO 11/18/23 07:59 HPI - Chest Pain 2 General: Chief Complaint: Chest Pain Stated Complaint: POST CODE Time Seen by Provider: 11/18/23 05:28 [facility] ED 2 [facility]: Medical History (Updated 11/18/23 @ 07:04 by Raffaele Pacheco DO) COPD (chronic obstructive pulmonary disease) WPW (Mvnbg-Hmwtctoxi-Bjxfk syndrome) Surgical History History of cholecystectomy History of PTCA Social History Smoking and tobacco/nicotine status: current every day tobacco/nicotine user Alcohol intake: current Alcohol intake frequency: few times a week Course 2 Vital Signs: Vital signs: Vital Signs Temperature 97.8 F 11/18/23 05:26 Pulse Rate 93 11/18/23 07:45 Respiratory Rate 20 H 11/18/23 06:00 Blood Pressure 100/70 11/18/23 07:45 Pulse Oximetry 99 11/18/23 07:45 Oxygen Delivery Me thod Nasal Cannula 11/18/23 07:45 Oxygen Flow Rate 2 11/18/23 07:45 MDM - Chest Pain Medical Decision Making I have discussed the patient's case with the on-coming physician <Dr. Pacheco > and they have assumed care of the patient. We have discussed the current lab/radiographic results that have been resulted and the pending tests. 11/18/2023 6:55 AM Care assumed at change of shift from Dr. Bloom chart reviewed. Interviewed patient he reports a remote history of WPW for which she had an ablation. This morning he got up around 4 AM and collapsed and was unresponsive EMS was called on their arrival they found him in V-fib he was given 2 shocks for defibrillation and 1 dose of epi CPR was performed. They achieved ROSC with time he arrived he is awake and alert. Last thing the patient recalls going to take a shower last night. He denies any recent chest pain or discomfort although he has some chest discomfort now. Patient recently has had a tooth ache he thinks he may had a fever in conjunction with that. He is currently in sinus tachycardia with a left bundle branch block similar to appearance on a twelve-lead EKG from July 2021. First troponin came back and is elevated 482. Patient been started on amiodarone 150 mg push and then a drip was started. Patient has some mild dizziness but no rhythm changes as amiodarone was started. He was also heparinized. Will keep n.p.o. admit to ICU discussed with Dr. Wallace he plans to take patient to [facility] later this morning. Were contacting EMS to check get copies of the rhythm strips from when he was defibrillated to document on the chart. Will discuss with hospitalist for admission as well. Patient reports she was scheduled for carotid endarterectomy and this was canceled yesterday by the surgeon in [place]. His is at the bedside and appears to be at baseline will get a CT of his head and route to the ICU. Differential Diagnosis Likely cardiac arrest Lab Data 11/18/23 05:36 11/18/23 05:36 Radiology Impressions Chest X-Ray 11/18/23 05:28 IMPRESSION: No acute findings. Chest CTA 11/18/23 05:30 IMPRESSION: No acute findings. Laboratory Results WBC 9.12 10^3/uL (3.29-11.43) 11/18/23 05:36 RBC 4.57 10^6/uL (3.85-5.65) 11/18/23 05:36 Hgb 13.60 g/dL (11.27-16.99) 11/18/23 05:36 Hct 41.3 % (37-53) 11/18/23 05:36 MCV 90.4 fl (82-101) 11/18/23 05:36 MCH 29.8 pg (27-33) 11/18/23 05:36 MCHC 32.9 g/dL (30-55) 11/18/23 05:36 RDW 15.0 % (12.1-15.1) 11/18/23 05:36 Plt Count 258 10^3/cmm (157-399) 11/18/23 05:36 MPV 8.7 fL (7.4-10.4) 11/18/23 05:36 Neut % (Auto) 76.6 % 11/18/23 05:36 Lymph % (Auto) 16.8 % 11/18/23 05:36 [place] % (Auto) 3.4 % 11/18/23 05:36 Eos % (Auto) 0.5 % 11/18/23 05:36 Baso % (Auto) 0.3 % 11/18/23 05:36 Neut # (Auto) 6.98 10^3/uL (1.8-7.7) 11/18/23 05:36 Lymph # (Auto) 1.5 10^3/uL (0.8-4.8) 11/18/23 05:36 [place] # (Auto) 0.3 10^3/uL (0.2-0.9) 11/18/23 05:36 Eos # (Auto) 0.1 10^3/uL (0.0-0.8) 11/18/23 05:36 Baso # (Auto) 0.0 10^3/uL (0.0-0.1) 11/18/23 05:36 Nucleated RBC % (auto) 0 % 11/18/23 05:36 Nucleated RBCs # 0.0 /100WBC 11/18/23 05:36 PT 14.10 SECONDS (12.1-14.9) 11/18/23 05:36 INR 1.05 (0.8-1.2) 11/18/23 05:36 APTT 29.8 SECONDS (23.9-36.7) 11/18/23 05:36 Sodium 142 mmol/L (136-145) 11/18/23 05:36 Potassium 3.8 mmol/L (3.5-5.1) 11/18/23 05:36 Chloride 104 mmol/L (98-107) 11/18/23 05:36 Carbon Dioxide 20 mmol/L (22-29) L 11/18/23 05:36 Anion Gap 21.8 (5-19) H 11/18/23 05:36 BUN 15 mg/dL (6-20) 11/18/23 05:36 Creatinine 1.1 mg/dL (0.7-1.2) 11/18/23 05:36 GFR Calculation 68.5 mL/min (90-130) L 11/18/23 05:36 Glucose 236 mg/dL (65-115) H 11/18/23 05:36 POC Glucose 255 mg/dL (70-110) H 11/18/23 05:43 Calculated Osmolality 302 mOsm/kg (285-295) H 11/18/23 05:36 Calcium 8.6 mg/dL (8.5-10.5) 11/18/23 05:36 Total Bilirubin 0.2 mg/dL (0.15-1.2) 11/18/23 05:36 AST 69 U/L (0-40) H 11/18/23 05:36 ALT 37 U/L (0-41) 11/18/23 05:36 Alkaline Phosphatase 90 U/L (40-130) 11/18/23 05:36 Troponin T Baseline 482 ng/L (0-15) H* 11/18/23 05:36 NT-Pro-B Natriuret Pep 1163 pg/mL (0-125) H 11/18/23 05:36 Total Protein 6.6 g/dL (6.6-8.7) 11/18/23 05:36 Albumin 3.9 g/dL (3.5-5.2) 11/18/23 05:36 Globulin 2.7 g/dL (1.3-4.6) 11/18/23 05:36 Urine Color Yellow (Yellow) 11/18/23 06:01 Urine Appearance Cloudy (CLEAR) A 11/18/23 06:01 Urine pH 6 (5-7) 11/18/23 06:01 Ur Specific [place] 1.025 (1.005-1.030) 11/18/23 06:01 Urine Protein 3+ (Negative) H 11/18/23 06:01 Urine Glucose (UA) 1+ (Normal) H 11/18/23 06:01 Urine Ketones Negative (Negative) 11/18/23 06:01 Urine Blood 2+ (Negative) H 11/18/23 06:01 Urine Nitrate Negative (Negative) 11/18/23 06:01 Urine Bilirubin Neg (Negative) 11/18/23 06:01 Urine Urobilinogen Neg mg/dL (Negative) 11/18/23 06:01 Ur Leukocyte Esterase Negative (Negative) 11/18/23 06:01 Urine RBC 5-10 /hpf (0-2) H 11/18/23 06:01 Urine WBC 25-40 /hpf (0-5) H 11/18/23 06:01 Ur Squamous Epith Cells 0-4 /hpf (0-5) H 11/18/23 06:01 Amorphous Sediment Trace /hpf 11/18/23 06:01 Urine Bacteria 2+ /hpf (NONE) H 11/18/23 06:01 Hyaline Casts 0-4 /lpf H 11/18/23 06:01 Coarse Granular Casts 0-4 /lpf H 11/18/23 06:01 Urine Mucus 1+ /hpf 11/18/23 06:01 Urine Sperm 1+ /hpf 11/18/23 06:01 Discharge Plan Discharge Patient Disposition: Admitted As Inpatient Admit Provider: Ryan Ramon Clinical Impression: Cardiac arrest, History of Dzoyr-Zpsnhefll-Djnte (WPW) syndrome, Cystitis, Dental caries Condition: Stable Sign Out Sign Out Data: Patient Sign Out occurred on 11/18/23 at 06:13. Patient's care was discussed, and care was transferred from George Bloom MD to Raffaele Pacheco DO. Coding Level of Care Code ED [employer]der [employer] for g Magui
[2023-11-18] MEDS: aspirin 81 mg Chew Tablet 324 MG PO (05:38)
[2023-11-18 05:43] LABS: Basophils % 0.3 %; Eosinophils # 0.1 10^3/uL (0.0-0.8); Eosinophils % 0.5 %; Hematocrit 41.3 % (37-53); Lymphocytes # 1.5 10^3/uL (0.8-4.8); Lymphocytes % 16.8 %; Mean Corpuscular HGB Conc 32.9 g/dL (30-55); Mean Corpuscular Hemoglobin 29.8 pg (27-33); Mean Corpuscular Volume 90.4 fl (82-101); Mean Platelet Volume 8.7 fL (7.4-10.4); Monocytes # 0.3 10^3/uL (0.2-0.9); Monocytes % 3.4 %; Neutrophils # 6.98 10^3/uL (1.8-7.7); Neutrophils % 76.6 %; Nucleated Red Blood Cells % 0 %; Platelet Count 258 10^3/cmm (157-399); Red Blood Count 4.57 10^6/uL (3.85-5.65); White Blood Count 9.12 10^3/uL (3.29-11.43)
[2023-11-18 05:47] LABS: Glucose Point of Care 255 mg/dL (70-110)
[2023-11-18] MEDS: iohexol 350 mg/mL 500 mL Btl (per mL) IV (05:54)
[2023-11-18 05:55] LABS: INR 1.05 (0.8-1.2); Partial Thromboplastin Time 29.8 SECONDS (23.9-36.7)
[2023-11-18 06:04] LABS: Troponin(5th) Baseline 482 ng/L (0-15)
[2023-11-18 06:18] LABS: Alanine Aminotransferase 37 U/L (0-41); Albumin Level 3.9 g/dL (3.5-5.2); Alkaline Phosphatase 90 U/L (40-130); Anion Gap 21.8 (5-19); Aspartate Amino Transferase 69 U/L (0-40); Blood Urea Nitrogen 15 mg/dL (6-20); Calcium 8.6 mg/dL (8.5-10.5); Carbon Dioxide 20 mmol/L (22-29); Chloride 104 mmol/L (98-107); Creatinine Clr Calc Pharmacy 80.9067; Globulin 2.7 g/dL (1.3-4.6); Glomerular Filtration Rate 68.5 mL/min (90-130); Glucose 236 mg/dL (65-115); NT Pro B Type Natriuretic Pept 1163 pg/mL (0-125); Osmolality Calculated 302 mOsm/kg (285-295); Potassium 3.8 mmol/L (3.5-5.1); Sodium 142 mmol/L (136-145); Total Bilirubin 0.2 mg/dL (0.15-1.2); Total Protein 6.6 g/dL (6.6-8.7)
[2023-11-18 06:28] LABS: Add Urine Microscopic? YES; Amorphous Sediment Urine TRACE /hpf; Bacteria Urine 2+ /hpf; Bilirubin Urine Neg (Negative); Blood Urine 2+ (Negative); Glucose Urine UA 1+ (Normal); Hyaline Casts Urine 0-4 /lpf; Ketones Urine Negative (Negative); Leukocyte Esterase Urine Negative (Negative); Mucus Urine 1+ /hpf; Nitrate Urine Negative (Negative); Protein Urine 3+ (Negative); Specific Gravity, Urine 1.025 (1.005-1.030); Squamous Epithelial Cell Urine 0-4 /hpf (0-5); Urine Appearance Cloudy (CLEAR); Urine Color Yellow (Yellow); Urobilinogen Urine Neg (Negative); WBC Urine 25-40 /hpf (0-5); pH Urine 6 (5-7)
[2023-11-18 06:29] LABS: Coarse Granular Casts Urine 0-4 /lpf; Sperm Urine 1+ /hpf
[2023-11-18] MEDS: heparin drip 25,000 UNIT/500 ML PREMIX 23.75 UNIT IV (06:29)
[2023-11-18 06:30] LABS: Add Urine Culture? Yes
[2023-11-18] MEDS: heparin 5,000 unit/mL INJ 1 mL IV (06:30)
[2023-11-18] MEDS: amiodarone 150 MG/100 ML PREMIX 400 MG IV (06:32)
[2023-11-18] MEDS: amiodarone 50 mg/mL SDV 3 mL 150 MG IVP (06:32)
--- NOTE | 2023-11-18 06:42 | ECG_ITS ---
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 Measurements Intervals [place] Rate: 97 P: 63 AK: 157 QRS: 59 QRSD: 146 T: 196 QT: 440 QTc: 560 Interpretive Statements SINUS RHYTHM LEFT BUNDLE BRANCH BLOCK [120+ ms QRS DURATION, 80+ ms Q/S IN V1/V2, 85+ ms R IN I/aVL/V5/V6] Compared to ECG 08/22/2021 00:55:32 Left bundle-branch block now present Ventricular-paced complex(es) or rhythm no longer present Electronically Signed On 11-18-2023 15:52:10 CDT by Mitchell Segal M.D. [id number]
--- NOTE | 2023-11-18 06:52 | CTR_ITS ---
PROCEDURE INFORMATION: Exam: CT Head Without Contrast Exam date and time: 11/18/2023 7:50 AM Age: 58 years old Clinical indication: Malaise or fatigue; Prior surgery; Surgery date: 6+ months; Surgery type: Previous traumatic brain injury; Additional info: Post code. No history of recent trauma or surgery is otherwise provided. TECHNIQUE: Imaging protocol: Computed tomography of the head without contrast. 290image(s) are provided. Radiation optimization: All CT scans at this facility use at least one of these dose optimization techniques: automated exposure control; mA and/or kV adjustment per patient size (includes targeted exams where dose is matched to clinical indication); or iterative reconstruction. Other technique: Axial images are available with sagittal and coronal reconstruction views. Automated dose exposure control is utilized. The DLP is 1069.13. COMPARISON: 1. CT head wo con* [id number] 02/05/2022 12:[address] head wo con* [id number] 05/19/2021 6:24 AM RADIATION DOSE METRICS: Total DLP (mGy-cm): 1069.13 FINDINGS: Brain: There are mild cerebral atrophic changes overall.There are chronic periventricular white matter changes present.There are central lacunar changes demonstrated. There is some chronic encephalomalacia, volume loss about the right temporal level similar overall.No mass effect or layering hemorrhage is appreciated. Gudino, white matter differentiation appears maintained. Cerebral ventricles: No hydrocephalus is appreciated. Pituitary gland and sella: Partially empty sella variant is demonstrated. Paranasal sinuses: There is some mild paranasal sinus mucosal thickening. Mastoid air cells: The mastoid air cells appear well-aerated overall. Orbital cavities: Symmetric appearance of the orbital soft tissues is demonstrated. There is some indentation suggestive of previous injury of the left medial orbital wall. Bones/joints: Osseous alignment is maintained. No interval displaced fracture or dislocation is appreciated. There are similar craniotomy changes on the right demonstrated. Soft tissues: No radiopaque foreign body or subcutaneous emphysema is appreciated. Vasculature: There is slight increased density of the vessels which could be seen with atherosclerotic change as well as slow flow. This can also be seen with some sequela previous albeit recent contrast injection. Other findings: No other significant interval changes are appreciated. CT/CT head wo con* [id number] IMPRESSION: No mass effect, layering hemorrhage or hydocephalus is demostrated. No acute intracranial changes are appreciated.
[2023-11-18] MEDS: cefTRIAXone 1,000 MG in sodium chloride 0.9% (plus) 50 ML 100 MG IV (07:30)
--- NOTE | 2023-11-18 07:39 | ECG_ITS ---
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 Measurements Intervals [place] Rate: 93 P: 63 IA: 155 QRS: 59 QRSD: 142 T: 171 QT: 445 QTc: 556 Interpretive Statements SINUS RHYTHM LEFT BUNDLE BRANCH BLOCK [120+ ms QRS DURATION, 80+ ms Q/S IN V1/V2, 85+ ms R IN I/aVL/V5/V6] Compared to ECG 08/22/2021 00:55:32 Left bundle-branch block now present Ventricular-paced complex(es) or rhythm no longer present Electronically Signed On 11-18-2023 15:58:07 CDT by Mitchell Segal M.D. [id number]
--- NOTE | 2023-11-18 07:39 | PC.PHAR ---
pts brought in most of the pts medication bottles and also was able to verify medications-pts states the pt dced his lisinopril/hctz 20-25mg one tab daily a while ago ext shows last filled 10/23/23 30d/s-pts states the pts metformin er 500mg daily was also dced
--- NOTE | 2023-11-18 07:47 | PM.CONSULT ---
Providers/Reason For Consult Consulting Physician/Specialty*: Mitchell Segal MD/ Cardiology Reason for Consult*: Vfib arrest/ syncope Requesting Physician: Dr Pacheco Attending Physician: Ryan Ramon MD Primary Care Provider: BRAYAN VILLELA History of Present Illness History of Present Illness Marcio Herrera is a 58 year old male With past medical history of WPW s/p ablation several years ago who was brought by EMS after he had cardiac arrest at home. According to friend who witnessed it, he woke up in the middle of the night and complained of neck pain. He went to the restroom and on his way back he passed out. She noticed he quit breathing. His Son performed CPR. Then EMS arrived and found him to be in V-fib. We do not have any rhythm strips. EKG showed left bundle branch block however this was present before as well per ER. Troponin is elevated and is over 400. He is not intubated. He is alert but confused. He has chest discomfort. Review of Systems General: Reports: 10 or more systems reviewed and unremarkable except in HPI and below Card: Reports: chest pain, irregular heart rhythm and syncope Medications/Allergies Home Medications Medication Instructions Recorded Confirmed Last Taken Type albuterol sulfate 90 mcg/actuation 2 puff inhalation QID PRN 11/18/23 11/18/23 Unknown History aerosol inhaler (Ventolin HFA) Shortness Of Breath aspirin 81 mg tablet,delayed 81 mg PO QAM 11/18/23 11/18/23 11/17/23 History release atorvastatin 40 mg tablet 40 mg PO BEDTIME 11/18/23 11/18/23 11/17/23 History clopidogrel 75 mg tablet 75 mg PO QAM 11/18/23 11/18/23 11/17/23 History gabapentin 800 mg tablet 800 mg PO BID 11/18/23 11/18/23 11/17/23 History glipizide 5 mg tablet, extended 5 mg PO QAM 11/18/23 11/18/23 11/17/23 History release 24 hr hydrochlorothiazide 25 mg tablet 25 mg PO QAM 11/18/23 11/18/23 11/17/23 History hydrocodone 10 mg-acetaminophen 1 tab PO Q8H PRN Pain 11/18/23 11/18/23 Unknown History 325 mg tablet metoprolol tartrate 50 mg tablet 50 mg PO BID 11/18/23 11/18/23 11/17/23 History multivitamin 1 tab PO QAM 11/18/23 11/18/23 11/17/23 History ofloxacin 0.3 % eye drops 1 drp ophthalmic (eye) QID 11/18/23 11/18/23 3 Days Ago History ~11/15/23 ondansetron 4 mg disintegrating 4 mg PO Q8H PRN Nausea And Vomiting 11/18/23 11/18/23 Unknown History tablet sildenafil 25 mg tablet See Rx Instructions .Route .COMPLEX 11/18/23 11/18/23 Unknown History tizanidine 4 mg tablet 4 mg PO Q8H PRN Muscle Spasm 11/18/23 11/18/23 Unknown History Allergies Allergy/AdvReac Type Severity Reaction Status Date / Time haloperidol [From Haldol] Allergy Severe made him Verified 11/18/23 07:39 blind tramadol [From Ultram] Allergy ADR-Itching Verified 11/18/23 07:39 Current Medications Generic Name Dose Route Start Last Admin Trade Name Freq PRN Reason Stop Dose Admin Heparin Sodium (Porcine) 0 unit 11/18/23 06:05 11/18/23 06:30 Heparin 5,000 Unit/Ml Inj 1 Ml IV 4,000 unit PRN PRN Administration Heparin weight-base protocol Protocol Heparin Sodium/Sodium Chloride 25,000 unit in 500 mls @ 0 mls/hr 11/18/23 06:15 11/18/23 06:29 Heparin Drip IV 14 unit/kg/hr .Q0M MOLLY 23.75 mls/hr Administration Protocol Per Protocol Amiodarone HCl/Dextrose 360 mg in 200 mls @ 0 mls/hr 11/18/23 07:16 11/18/23 07:35 Nexterone IV 0.5 mg/min .Q0M MOLLY 16.67 mls/hr Administration Protocol Per Protocol PFSH Acute PFSH: Medical History COPD (chronic obstructive pulmonary disease) WPW (Yvpux-Dbwqgjkvy-Dzvbp syndrome) Surgical History History of cholecystectomy History of PTCA Social History Smoking and tobacco/nicotine status: current every day tobacco/nicotine user Alcohol intake: current Alcohol intake frequency: few times a week Vitals/I&O/Wt Last Vital Signs Temp 97.8 F 11/18/23 05:26 Pulse 93 11/18/23 07:45 Resp 20 H 11/18/23 06:00 BP 100/70 11/18/23 07:45 Pulse Ox 99 11/18/23 07:45 O2 Del Method Nasal Cannula 11/18/23 07:45 O2 Flow Rate 2 11/18/23 07:45 Weight last 48 hrs Weight 187 lb Physical Exam Narrative: GENERAL: Patient is alert, awake and oriented x3. [] NECK: No jugular vein distension. [] HEENT: No cyanosis. No icterus. No pallor. [] HEART: Regular S1 and S2. No murmur, rub or gallop. [] LUNGS: Clear to auscultate bilaterally. [] CENTRAL NERVOUS SYSTEM: Grossly nonfocal. [] EXTREMITIES: Lower extremities with 1+ edema bilaterally. Data 11/18/23 05:36 11/18/23 05:36 Micro: Microbiology 11/18/23 07:24 Blood Culture - Preliminary Blood SPECIMEN COLLECTED 11/18/23 07:19 Blood Culture - Preliminary Blood SPECIMEN COLLECTED A&P Assessment and plan (1) Cardiac arrest: (2) Essential hypertension: (3) History of Ruxbn-Cwdwermva-Rdkoz (WPW) syndrome: (4) NSTEMI (non-ST elevated myocardial infarction): Plan Patient had out of hospital V-fib arrest. Not intubated. Received CPR at home prior to EMS arrival. They found him in ventricular fibrillation.Troponin is more than 400. We will proceed with coronary angiogram with possible percutaneous coronary intervention. Risks and benefits of the procedure have been discussed. If no severe CAD, we will transfer him for EP evaluation and EP study.He may require ICD placement for secondary prevention as well. Continue anticoagulation NPO Order echocardiogram Thank you for involving us with care of this patient. We will continue to follow. Please call with question. Consult Attestations Medical Necessity Statement: Care expected to cross 2 midnights. Coding Level of Care Code Acute Code for [facility] Diagnoses Cardiac arrest I46.9 Essential hypertension I10 History of Jimxq-Sqsgmszyl-Kezga (WPW) syndrome Z86.79 NSTEMI (non-ST elevated myocardial infarction) I21.4
--- NOTE | 2023-11-18 08:03 | XACV_ITS ---
Exam Room: [facility] Ht: 180 cm Wt: 85 kg BSA: 2.07 m2 Gender: Male : 1965 Any Known Allergies: Other Exam Priority: Routine Procedure(s): Procedure Description: Diagnostic procedure Procedure Description: Left Heart Catheterization Procedure Description: Left ventriculography Procedure Description: Miscellaneous Procedure Description: ACT Procedure Description: Coronary Angiography Diagnostic Cath Status: Urgent Diagnostic Findings * INDICATION: Ventricular fibrillation/ NSTEMI. * Left Main: severe 80% stenosis, EVI: 3 flow. Ulcerated plaque seen. * Left Anterior Descending has no significant disease. * Circumflex has no significant disease. * Mid Right Coronary Artery: minimal 30% stenosis, EVI: 3 flow. There is a bend in the mid section of the vessel. * Coronary angiography shows right dominance. Conclusions 1. Severe left main artery stenosis. 2. Mild left ventricular systolic dysfunction. Ejection fraction of 45%. Recommendations * Continue heparin gtt. * Continue aspirin. Hold Plavix. * Order echocardiogram. * Transferring to tertiary care center for CABG evaluation/heart team discussion. Interventional RX Recommendation: CABG Diagnostic RX Recommendation: CABG Anticoagulation: Heparin Ventriculography Ejection Fraction: 45.0 % Pressures Phase:Rest AO : 91 / 60 ( 70 ) @ 10:26:00 AM 75 / 63 ( 69 ) @ 10:26:00 AM 111 / 66 ( 84 ) @ 10:40:00 AM 109 / 66 ( 83 ) @ 10:40:00 AM LV : 104 / 3 / 24 @ 10:38:00 AM 106 @ 10:39:00 AM 110 / 12 24 @ 10:40:00 AM Valves Phase:DefaultPhase AV : 0.0 @ 10:30:26 AM 0.0 @ 10:30:26 AM AV Mean Gradient: 0.0 @ 10:30:26 AM 0.0 @ 10:30:26 AM Clinical Evaluation EBL: 5mL-10mL Procedural Details Pre-Procedure Time Out. Identified patient by full name and date of as verbalized by the patient/guarantor. Does the consent match the physician's order: Yes. Accurate & Complete Informed Consent: Yes. Inpatient/Outpatient History & Physical on Chart: Yes. If H&P is completed, is and addenduem needed: No; If yes, is the addendum complete: N/A. Visualize and Verify Site with Patient/Guarantor: N/A. Relevant Radiology Images available: Yes. Pre-op teaching completed and patient verbalized understanding. The risks, benefits, and alternatives of sedation and/or procedure were discussed by physician. The patient agrees to continue. Procedure started. Current Diagnosis : NSTEMI. [facility] Clinical Fraility Score: 4: Vulnerable. Quilt Maker Indications: Cardiac Arrhythmia. Chest Pain Symptom Assessment: Atypical Angina. Correct patient, site and procedure confirmed by cath team. Current diagnosis: NSTEMI. PERRLA. Strong, equal hand executive cyber leader bilaterally. Lungs clear x 5 lobes. IV Site on Arrival: 18 gauge in the right anticubital. IV Fluids: 0.9% NaCl at KVO. 0 mL infused prior to lab systems analyst. Oxygen started at 2liters/min via nasal canula. right groin was prepped with chloroprep then draped in the usual sterile fashion. right radial was prepped with chloroprep then draped in the usual sterile fashion. Baseline sample Acquired. HR: 93 BPM. Physician arrived. Physician scrubbed in. Immediate Pre-Procedure Time Out. Correct Patient: Yes; Correct Procedure: Yes; Correct Site: Yes; Correct Patient Position: Yes; Correct Supplies: Yes; Dried Flammable Prep: Yes; Blood Products Available: N/A;. Lidocaine 1% infiltrated to the right radial. Arterial access obtained. A 5 [place] TIG catheter in over wire. Multiple views taken of left coronary artery. The patient arrived to the lab systems analyst with amiodorone drip at 1mcg/min. Catheter redirected to the RCA. Catheter removed over the exchange wire. A 5 [place] JR4 catheter in over wire. Catheter removed over the exchange wire. A 5 [place] AL1 catheter in over wire. Multiple views taken of right coronary artery. Catheter removed over the exchange wire. A 5 [place] Angled Pig catheter in over wire. EDP Sample taken: LV 104/3,24; HR: 87 BPM; SpO2: 100%. LV gram performed in LIMON @ 10 mL/second for a total of 30 mL. EDP Sample taken: LV 106/12,25; HR: 88 BPM; SpO2: 100%. Pullback taken: LV 110/12,24; AO 111/66(84); Mean: 0mmHg, Peak to Peak: 0mmHg, SEP: 9sec/min; HR: 88 BPM; SpO2: 100%. ACT drawn. Results 238 seconds. Therapeutic limits - pre-heparin administration 90-150 seconds and monitoring heparin during a vascular procedure >250 seconds. Catheter removed over the exchange wire. Dr. Segal scrubbed out to consult with the CT surgeon. Side port of sheath attached to Normal Saline flush at KVO to maintain patency. The surgeon just called back. Dr. Segal is now consulting with him. A TR Band was successful obtaining hemostatsis at the Right Radial artery insertion site. Post Procedure: Pulses reassessed and unchanged. PERRLA. Strong, equal hand executive cyber leader bilaterally. No VTE prophylaxis required. Medication's Wasted: Heparin = 3500 units. Medication's Wasted: Nitro = 49.8 mg. Total IV fluids: 95 mL. Vital chart was stopped. Post-op diagnosis: CAD. Complications: None. Estimated blood loss: 5mL-10mL. Responsiveness - Normal response to verbal stimuli; alert and oriented, PERRLA. Airway - Unaffected, no intervention required; spontaneous ventilation. Circulation: W/N/L, pulses unchanged. Nausea/Vomiting: No. Procedure completed. Patient transferred by bed to ICU. Access Site Site: Right Radial artery Sheath Size: 6 Fr Hemostasis Method: TR Band Hemostasis Success: Successful Procedure Medications Start: 9:10 AM Stop: 9:10 AM Medication: Fentanyl Amount: 25 mcg Route: I.V. Start: 9:12 AM Stop: 9:12 AM Medication: Versed Amount: 1 mg Route: I.V. Start: 9:17 AM Stop: 9:17 AM Medication: Fentanyl Amount: 25 mcg Route: I.V. Start: 9:24 AM Stop: 9:24 AM Medication: Nitrogylcerin Amount: 200 mcg Route: I.A. Start: 9:25 AM Stop: 9:25 AM Medication: Heparin Amount: 2500 units Route: I.V. Start: 10:14 AM Stop: 10:14 AM Medication: Fentanyl Amount: 25 mcg Route: I.V. Start: 10:26 AM Stop: 10:26 AM Medication: Fentanyl Amount: 25 mcg Route: I.V. I, the attending physician, have reviewed and verified all procedure medications. Yes, all medications given per verbal order History/Risk Factors Hypertension: No Dyslipidemia: No Peripheral Arterial Disease (PAD): No Myocardial Infarction (MS): No Obesity: No Renal Disease: No Tobacco Use: Current/Recent(w/in 1 year) Prior Interventions PCI: Yes CABG: No Valve Surgery: No Report Signatures Finalized by Mitchell Segal MD on 11/18/2023 11:00 AM
[2023-11-18 08:45] LABS: Troponin 5 2HR 672.2 ng/L (0-15); Troponin 5 2HR Delta 190.2 ABS# (0-10)
--- NOTE | 2023-11-18 08:49 | PC.NURSE ---
Pt was brought to ICU at 0800 via bed on RA. Heparin gtt running per orders and Amio running at 0.5. Dr. Ramon gave verbal order to increase to 1 per protocol. Pt complaining of chest pain 4/10 from chest compressions. No belongings.
--- NOTE | 2023-11-18 09:19 | W.PM.OPSUD ---
Surgery/Procedure H&P Update DATE OF PROCEDURE: November 18, 2023 DATE H&P PERFORMED: 11/18/23 H&P UPDATE INFORMATION: I have reviewed H&P completed within last 30 days, I have examined patient prior to procedure and No changes to prior documentation PREOP DIAGNOSIS: Venticular fibrillation/NSTEMI PRIMARY INDICATION FOR PROCEDURE: Ventricular fibrillation PLANNED PROCEDURE: Left heart cath with possible percutaneous coronary intervention PATIENT REASSESSED PRIOR TO SEDATION, WITH NO CHANGE NOTED: Yes PHYSICAL EXAM: alert, oriented x 3, clear to auscultation bilaterally and regular rate & rhythm AIRWAY EVAL/ANESTHESIA PLAN: normal airway, ASA III, Local Anesthesia, Risks, benefits & alternatives of sedation and/or procedure discussed and Patient agrees to continue as planned ADDITIONAL INFORMATION: Moderate sedation
[2023-11-18 09:24] LABS: Amphetamines Screen Urine Positive (Negative); Barbiturates Screen Urine Negative (Negative); Benzodiazepines Screen Urine Negative (Negative); Cocaine Screen Urine Negative (Negative); Opiate Screen Urine Positive (Negative); PCP Screen Urine Negative (Negative); THC Screen Urine Negative (Negative)
[2023-11-18 09:52] LABS: Alcohol Level < 10 mg/dL (0-10)
--- NOTE | 2023-11-18 10:48 | P.HP_ITS ---
Providers/Chief Complaint 2 Admitting Physician: Ryan Ramon MD Primary Care Provider: BRAYAN VILLELA Chief Complaint: POST CODE History of Present Illness Marcio Herrera is a 58 year old male with a past medical history of Gbhfg-Hudaaafrh-Cetkn syndrome status post ablation, history of alcoholism, history of intracranial bleed, history of neck surgery, history of insulin- dependent type 2 diabetes mellitus, history of COPD, active smoker, who presents to [facility] due to cardiac arrest episode at home. According to patient and his family, patient woke up, in the morning at 4 AM, had complaints of neck pain, went to the bathroom, and on the way back he passed out, stop breathing, his son performed CPR, when EMS arrived he was found to be V-fib,, received 1 synchronized 200 J shock, CPR was resumed, received 1 mg of epinephrine, received a second 200 J shock, with return of circulation, on arrival to the ER he was alert oriented x 4, complaining of left-sided lower jaw pain, he was given aspirin, started on a heparin drip, EKG here shows left bundle branch block, first troponin 482, 120-minute see 72, delta 190, CT angiogram of the chest negative for PE, patient does admit that he has been hanging around with the wrong crowd, he denies any IV drug use, does report drinking alcohol, does report smoking cigarettes, urine toxicology is positive for amphetamines, he was also found to have a UTI, given a gram of Rocephin, for his Huywt-Fqddwvwxl-Jzvyu syndrome, he tells me he had an ablation in the , Review of Systems 2 Const: Denies: fever(s) Eyes: Denies: change in vision Card: Reports: chest pain Resp: Denies: dyspnea GI: Denies: abdominal pain Musc: Reports: neck pain Neuro: Denies: headache(s) Psych: Denies: anxiety Medications/Allergies Home Medications Medication Instructions Recorded Confirmed Last Taken Type albuterol sulfate 90 mcg/actuation 2 puff inhalation QID PRN 11/18/23 11/18/23 Unknown History aerosol inhaler (Ventolin HFA) Shortness Of Breath aspirin 81 mg tablet,delayed 81 mg PO QAM 11/18/23 11/18/23 11/17/23 History release atorvastatin 40 mg tablet 40 mg PO BEDTIME 03/11/18/23 11/17/23 History clopidogrel 75 mg tablet 75 mg PO QAM 11/18/23 11/18/23 11/17/23 History gabapentin 800 mg tablet 800 mg PO BID 11/18/23 11/18/23 11/17/23 History glipizide 5 mg tablet, extended 5 mg PO QAM 11/18/23 11/18/23 11/17/23 History release 24 hr hydrochlorothiazide 25 mg tablet 25 mg PO QAM 11/18/23 11/18/23 11/17/23 History hydrocodone 10 mg-acetaminophen 1 tab PO Q8H PRN Pain 11/18/23 11/18/23 Unknown History 325 mg tablet metoprolol tartrate 50 mg tablet 50 mg PO BID 11/18/23 11/18/23 11/17/23 History multivitamin 1 tab PO QAM 11/18/23 11/18/23 11/17/23 History ofloxacin 0.3 % eye drops 1 drp ophthalmic (eye) QID 11/18/23 11/18/23 3 Days Ago History ~11/15/23 ondansetron 4 mg disintegrating 4 mg PO Q8H PRN Nausea And Vomiting 11/18/23 11/18/23 Unknown History tablet sildenafil 25 mg tablet See Rx Instructions .Route .COMPLEX 11/18/23 11/18/23 Unknown History tizanidine 4 mg tablet 4 mg PO Q8H PRN Muscle Spasm 11/18/23 11/18/23 Unknown History Allergies Allergy/AdvReac Type Severity Reaction Status Date / Time haloperidol [From Haldol] Allergy Severe made him Verified 11/18/23 07:39 blind tramadol [From Ultram] Allergy ADR-Itching Verified 11/18/23 07:39 PFSH Acute 2 PFSH: Medical History COPD (chronic obstructive pulmonary disease) WPW (Jqvcg-Eekuozezn-Tgdwz syndrome) Surgical History History of cholecystectomy History of PTCA Social History Smoking and tobacco/nicotine status: current every day tobacco/nicotine user Alcohol intake: current Alcohol intake frequency: few times a week Vitals/I&O/Wt Last Vital Signs Temp 97.8 F 11/18/23 05:26 Pulse 93 11/18/23 07:45 Resp 20 H 11/18/23 06:00 BP 100/70 11/18/23 07:45 Pulse Ox 99 11/18/23 07:45 O2 Del Method Room Air 11/18/23 08:52 O2 Flow Rate 2 11/18/23 07:45 11/17/23 11/18/23 11/18/23 22:59 06:59 14:59 Intake Total 15.281 / 15.281 Balance 15.281 / 15.281 Weight last 48 hrs Weight 84.822 kg Physical Exam 2 Const: COMMON NORMALS: no acute distress and patient oriented x3 HENMT: COMMON NORMALS: normocephalic HEAD & SCALP: normocephalic Eye: COMMON NORMALS: Equal, round and reactive pupils present and EOMs intact bilaterally Neck/C-Spine: COMMON NORMALS: no JVD Lymph: LYMPHATIC: no lymphadenopathy noted Resp: COMMON NORMALS: normal respiratory effort, No retractions, No use of accessory muscles and clear to auscultation bilaterally AUSCULTATION: clear to auscultation bilaterally Cardio: COMMON NORMALS: no JVD, regular rate, regular rhythm, S1 normal heart sound present and S2 normal heart sound present RATE: regular rate RHYTHM: regular rhythm HEART SOUNDS: S1 normal heart sound present and S2 normal heart sound present GI: COMMON NORMALS: Normal to inspection, nondistended, normoactive bowel sounds present, Soft to palpation and non-tender Extremity: COMMON NORMALS: no calf tenderness and no pedal edema Neuro: COMMON NORMALS: patient oriented x3, CN's II-XII intact bilaterally and moves all extremities Psych: COMMON NORMALS: mental status grossly normal Data 11/18/23 05:36 11/18/23 05:36 Micro: Microbiology 11/18/23 07:24 Blood Culture - Preliminary Blood SPECIMEN COLLECTED 11/18/23 07:19 Blood Culture - Preliminary Blood SPECIMEN COLLECTED A&P Assessment and plan (1) Cardiac arrest with ventricular fibrillation: (2) NSTEMI (non-ST elevated myocardial infarction): (3) WPW (Vwepl-Sijlpvuqw-Kkarw syndrome): (4) COPD (chronic obstructive pulmonary disease): (5) UTI (urinary tract infection): (6) Goals of care, counseling/discussion: Plan Cardiac arrest with ventricular fibrillation -Status post defibrillation x 2, 1 mg epinephrine, CPR, ROSC -Currently alert oriented x 4, following all commands, normotensive, on room air Plan -Serial EKGs, serial troponins, telemetry monitoring -Cardiac echo -Continue aspirin, statin, beta-kadi -Continue heparin drip -Continue amiodarone drip -Morphine for pain control -Keep n.p.o. -Cardiology consulted, plans on coronary angiography -Full code -Heparin drip for DVT prophylaxis Urine toxicology screen positive for methamphetamines History of smoking, history of COPD History of WPW syndrome, status post ablation UTI, continue Rocephin Type 2 diabetes mellitus, low-dose sliding scale spoke to patient, spoke to ER physician, spoke to cardiology Attestations 2 Medical Necessity Statement*: Patient requires hospitalization, inpatient, greater than 2 midnights, for cardiac arrest associated with V-fib arrest, with NSTEMI, chest pain, UTI Coding Level of Care Code Critical Care >/= 30 minutes Critical care time (in minutes): 50 The high probability of a clinically significant, sudden or life threatening deterioration, as referenced in this documentation, required my full and direct attention, intervention and personal management. The critical care time shown is in addition to time spent performing any reported separately billable procedures and includes the following: [x] Data and vital sign review and interpretation [x ] Patient assessment, examination and intervention [x] Medication orders and management [x] Patient/Family updates as able [x] Care Coordination and Documentation. Diagnoses Cardiac arrest with ventricular fibrillation I46.9; I49.01 NSTEMI (non-ST elevated myocardial infarction) I21.4 WPW (Uicoc-Olkjesbfd-Vwziu syndrome) I45.6 COPD (chronic obstructive pulmonary disease) J44.9 UTI (urinary tract infection) N39.0 Goals of care, counseling/discussion Z71.89
--- NOTE | 2023-11-18 11:08 | PM.MISC ---
Miscellaneous Note Purpose of Documentation: Brief note Note: We performed coronary angiogram urgently. Has severe left main artery stenosis. Plan to transfer to tertiary care center for surgical evaluation for CABG. Resume heparin gtt. Continue aspirin. No plavix Obtain echocardiogram
[2023-11-18 11:26] LABS: Glucose Point of Care 161 mg/dL (70-110)
--- NOTE | 2023-11-18 11:28 | ECG_ITS ---
[facility] Test Date: 2023-11-18 Pat Name: Marcio Herrera Department: Room: [facility] Gender: Male Field Hand: : 1965 Requested By: George Bloom Order Number: [id number] Calvin MD: Mitchell Segal M.D. Measurements Intervals [place] Rate: 87 P: 55 NE: 150 QRS: 53 QRSD: 144 T: 151 QT: 431 QTc: 521 Interpretive Statements SINUS RHYTHM LEFT BUNDLE BRANCH BLOCK [120+ ms QRS DURATION, 80+ ms Q/S IN V1/V2, 85+ ms R IN I/aVL/V5/V6] Compared to ECG 11/18/2023 07:39:30 No significant changes Electronically Signed On 11-18-2023 15:58:04 CDT by Mitchell Segal M.D. [email or web address]
[2023-11-18] MEDS: insulin lispro 100 unit/1 mL SUBCUT (11:44)
[2023-11-18] MEDS: morphine 4 mg/mL SDV 1 mL 2 MG IVP (11:44)
[2023-11-18] MEDS: pantoprazole 40 mg SDV IVP (11:44)
[2023-11-18 12:35] LABS: Lactate (Lactic Acid level) 1.3 mmol/L (0.5-2.2)
[2023-11-18 12:44] LABS: Estmated Average Glucose 160; Hemoglobin A1C 7.2 % (4.0-6.0); NT Pro B Type Natriuretic Pept 2009 pg/mL (0-125); Procalcitonin 0.11 ng/mL (0-0.5); Thyroid Stimulating Hormone 0.81 uIU/mL (0.27-4.20)
[2023-11-18 12:55] LABS: C Reactive Protein 11.7 mg/L (0.0-4.9); Chol HDL Ratio 3.43 mg/dL (1.0-5.00); Cholesterol 103 mg/dL (0-200); HDL Cholesterol 30 mg/dL (60-100); LDL Cholesterol Calculated 43 mg/dL (50-129); LDL HDL Ratio 1.43 RATIO (0.00-3.22); Triglycerides 151 mg/dL (0-150)
[2023-11-18 12:59] LABS: Creatine Phosphokinase 849 U/L (39-308)
--- NOTE | 2023-11-18 13:22 | PM.TDS ---
Transfer Summary Providers Date of Admission: 11/18/23 08:23 Date of Discharge/Transfer: 11/18/23 Attending Provider at Admission: Ryan Ramon MD Attending Provider at Transfer: Ryan Ramon MD Primary Care Provider: BRAYAN VILLELA Transfer Plans: Anticipated date of transfer: 11/18/23. Diagnoses at Discharge Discharge Diagnosis (1) Cardiac arrest with ventricular fibrillation: Status: Acute (2) NSTEMI (non-ST elevated myocardial infarction): Status: Acute (3) WPW (Tnbjq-Aycqdbonv-Ebwwb syndrome): Status: Acute (4) COPD (chronic obstructive pulmonary disease): Status: Acute (5) UTI (urinary tract infection): Status: Acute (6) Goals of care, counseling/discussion: Status: Acute Reason for Visit Reason for Visit POST CODE Hospital Course Hospital Course Marcio Herrera is a 58 year old male with a past medical history of Sgixp-Ukthmcfsa-Nskfp syndrome status post ablation, history of alcoholism, history of intracranial bleed, history of neck surgery, history of insulin-dependent type 2 diabetes mellitus, history of COPD, active smoker, who presents to [facility] due to cardiac arrest episode at home. According to patient and his family, patient woke up, in the morning at 4 AM, had complaints of neck pain, went to the bathroom, and on the way back he passed out, stop breathing, his son performed CPR, when EMS arrived he was found to be V-fib,, received 1 synchronized 200 J shock, CPR was resumed, received 1 mg of epinephrine, received a second 200 J shock, with return of circulation, on arrival to the ER he was alert oriented x 4, complaining of left-sided lower jaw pain, he was given aspirin, started on a heparin drip, EKG here shows left bundle branch block, first troponin 482, 120-minute see 72, delta 190, CT angiogram of the chest negative for PE, patient does admit that he has been hanging around with the wrong crowd, he denies any IV drug use, does report drinking alcohol, does report smoking cigarettes, urine toxicology is positive for amphetamines, he was also found to have a UTI, given a gram of Rocephin, for his Hnbyq-Xjclbvvfw-Mbbqa syndrome, he tells me he had an ablation in the , Patient was admitted to [facility] for V-fib cardiac arrest, NSTEMI, chest pain, show on aspirin, amiodarone drip, heparin drip, underwent coronary angiography, found to have severe left main artery stenosis, cardiology spoke to [facility] for consideration of transfer for surgical evaluation for CABG, patient was excepted at [facility], patient was transferred to [facility] for CABG evaluation Physical Exam Const: COMMON NORMALS: no acute distress and patient oriented x3 Resp: COMMON NORMALS: normal respiratory effort, No retractions, No use of accessory muscles and clear to auscultation bilaterally AUSCULTATION: clear to auscultation bilaterally Cardio: COMMON NORMALS: regular rate, regular rhythm, S1 normal heart sound present and S2 normal heart sound present RATE: regular rate RHYTHM: regular rhythm HEART SOUNDS: S1 normal heart sound present and S2 normal heart sound present GI: COMMON NORMALS: Normal to inspection, nondistended, normoactive bowel sounds present and non-tender Extremity: COMMON NORMALS: no pedal edema Neuro: COMMON NORMALS: patient oriented x3 Psych: COMMON NORMALS: mental status grossly normal TS Data Studies Completed and Pending Pending at discharge Category Date Time Status Blood Culture Stat Lab 11/18/23 07:24 Results Complete Blood Count w/Auto AM LABS Lab 11/19/23 04:00 Ordered Complete Blood Count w/Auto AM LABS Lab 11/20/23 04:00 Ordered Complete Blood Count w/Auto AM LABS Lab 11/21/23 04:00 Ordered Comprehensive Metabolic Panel AM LABS Lab 11/19/23 04:00 Ordered Comprehensive Metabolic Panel AM LABS Lab 11/20/23 04:00 Ordered Comprehensive Metabolic Panel AM LABS Lab 11/21/23 04:00 Ordered Magnesium AM LABS Lab 11/19/23 04:00 Ordered Magnesium AM LABS Lab 11/20/23 04:00 Ordered Magnesium AM LABS Lab 11/21/23 04:00 Ordered Phosphorus AM LABS Lab 11/19/23 04:00 Ordered Phosphorus AM LABS Lab 11/20/23 04:00 Ordered Phosphorus AM LABS Lab 11/21/23 04:00 Ordered Platelet Count Q2D Lab 11/20/23 04:00 Ordered Platelet Count Q2D Lab 11/22/23 04:00 Ordered Prothrombin Time INR AM LABS Lab 11/19/23 04:00 Ordered Prothrombin Time INR AM LABS Lab 11/20/23 04:00 Ordered Prothrombin Time INR AM LABS Lab 11/21/23 04:00 Ordered Troponin(5th) 6 hour. Timed Lab 11/18/23 11:36 Ordered Urine Culture Stat Lab 11/18/23 06:01 Received Completed Studies During Hospitalization Category Date Time Status CT head wo con* [id number] Stat Cat Scan 11/18/23 06:52 Completed CTA chest [CT angio chest PE protcl [id number]] Stat Cat Scan 11/18/23 05:30 Completed [employer] request for service Routine Exams 11/18/23 08:03 Completed XR chest 1V portable [id number] Stat Exams 11/18/23 05:28 Completed Laboratory Last Values WBC 9.12 10^3/uL (3.29-11.43) 11/18/23 05:36 RBC 4.57 10^6/uL (3.85-5.65) 11/18/23 05:36 Hgb 13.60 g/dL (11.27-16.99) 11/18/23 05:36 Hct 41.3 % (37-53) 11/18/23 05:36 MCV 90.4 fl (82-101) 11/18/23 05:36 MCH 29.8 pg (27-33) 11/18/23 05:36 MCHC 32.9 g/dL (30-55) 11/18/23 05:36 RDW 15.0 % (12.1-15.1) 11/18/23 05:36 Plt Count 258 10^3/cmm (157-399) 11/18/23 05:36 MPV 8.7 fL (7.4-10.4) 11/18/23 05:36 Neut % (Auto) 76.6 % 11/18/23 05:36 Lymph % (Auto) 16.8 % 11/18/23 05:36 [place] % (Auto) 3.4 % 11/18/23 05:36 Eos % (Auto) 0.5 % 11/18/23 05:36 Baso % (Auto) 0.3 % 11/18/23 05:36 Neut # (Auto) 6.98 10^3/uL (1.8-7.7) 11/18/23 05:36 Lymph # (Auto) 1.5 10^3/uL (0.8-4.8) 11/18/23 05:36 [place] # (Auto) 0.3 10^3/uL (0.2-0.9) 11/18/23 05:36 Eos # (Auto) 0.1 10^3/uL (0.0-0.8) 11/18/23 05:36 Baso # (Auto) 0.0 10^3/uL (0.0-0.1) 11/18/23 05:36 Nucleated RBC % (auto) 0 % 11/18/23 05:36 Nucleated RBCs # 0.0 /100WBC 11/18/23 05:36 PT 14.10 SECONDS (12.1-14.9) 11/18/23 05:36 INR 1.05 (0.8-1.2) 11/18/23 05:36 APTT 29.8 SECONDS (23.9-36.7) 11/18/23 05:36 Sodium 142 mmol/L (136-145) 11/18/23 05:36 Potassium 3.8 mmol/L (3.5-5.1) 11/18/23 05:36 Chloride 104 mmol/L (98-107) 11/18/23 05:36 Carbon Dioxide 20 mmol/L (22-29) L 11/18/23 05:36 Anion Gap 21.8 (5-19) H 11/18/23 05:36 BUN 15 mg/dL (6-20) 11/18/23 05:36 Creatinine 1.1 mg/dL (0.7-1.2) 11/18/23 05:36 GFR Calculation 68.5 mL/min (90-130) L 11/18/23 05:36 Glucose 236 mg/dL (65-115) H 11/18/23 05:36 POC Glucose 161 mg/dL (70-110) H 11/18/23 11:22 Estimat Average Glucose 160 11/18/23 12:07 Hemoglobin A1c 7.2 % (4.0-6.0) H 11/18/23 12:07 Calculated Osmolality 302 mOsm/kg (285-295) H 11/18/23 05:36 Lactate 1.3 mmol/L (0.5-2.2) 11/18/23 12:07 Calcium 8.6 mg/dL (8.5-10.5) 11/18/23 05:36 Magnesium 2.0 mg/dL (1.7-2.3) 11/18/23 05:36 Total Bilirubin 0.2 mg/dL (0.15-1.2) 11/18/23 05:36 AST 69 U/L (0-40) H 11/18/23 05:36 ALT 37 U/L (0-41) 11/18/23 05:36 Alkaline Phosphatase 90 U/L (40-130) 11/18/23 05:36 Creatine Kinase 849 U/L (39-308) H* 11/18/23 12:07 Troponin T Baseline 482 ng/L (0-15) H* 11/18/23 05:36 Troponin T 120 Minute 672.2 ng/L (0-15) H 11/18/23 07:24 Delta Troponin T 190.2 ABS# (0-10) H* 11/18/23 07:24 C-Reactive Protein 11.7 mg/L (0.0-4.9) H 11/18/23 12:07 NT-Pro-B Natriuret Pep 2009 pg/mL (0-125) H 11/18/23 12:07 Total Protein 6.6 g/dL (6.6-8.7) 11/18/23 05:36 Albumin 3.9 g/dL (3.5-5.2) 11/18/23 05:36 Globulin 2.7 g/dL (1.3-4.6) 11/18/23 05:36 Triglycerides 151 mg/dL (0-150) H 11/18/23 12:07 Cholesterol 103 mg/dL (0-200) 11/18/23 12:07 LDL Cholesterol, Calc 43 mg/dL (50-129) L 11/18/23 12:07 HDL Cholesterol 30 mg/dL (60-100) L 11/18/23 12:07 LDL/HDL Ratio 1.43 RATIO (0.00-3.22) 11/18/23 12:07 Cholesterol/HDL Ratio 3.43 mg/dL (1.0-5.00) 11/18/23 12:07 Procalcitonin 0.11 ng/mL (0-0.5) 11/18/23 12:07 TSH 0.81 uIU/mL (0.27-4.20) 11/18/23 12:07 Urine Color Yellow (Yellow) 11/18/23 06:01 Urine Appearance Cloudy (CLEAR) A 11/18/23 06:01 Urine pH 6 (5-7) 11/18/23 06:01 Ur Specific [place] 1.025 (1.005-1.030) 11/18/23 06:01 Urine Protein 3+ (Negative) H 11/18/23 06:01 Urine Glucose (UA) 1+ (Normal) H 11/18/23 06:01 Urine Ketones Negative (Negative) 11/18/23 06:01 Urine Blood 2+ (Negative) H 11/18/23 06:01 Urine Nitrate Negative (Negative) 11/18/23 06:01 Urine Bilirubin Neg (Negative) 11/18/23 06:01 Urine Urobilinogen Neg mg/dL (Negative) 11/18/23 06:01 Ur Leukocyte Esterase Negative (Negative) 11/18/23 06:01 Urine RBC 5-10 /hpf (0-2) H 11/18/23 06:01 Urine WBC 25-40 /hpf (0-5) H 11/18/23 06:01 Ur Squamous Epith Cells 0-4 /hpf (0-5) H 11/18/23 06:01 Amorphous Sediment Trace /hpf 11/18/23 06:01 Urine Bacteria 2+ /hpf (NONE) H 11/18/23 06:01 Hyaline Casts 0-4 /lpf H 11/18/23 06:01 Coarse Granular Casts 0-4 /lpf H 11/18/23 06:01 Urine Mucus 1+ /hpf 11/18/23 06:01 Urine Sperm 1+ /hpf 11/18/23 06:01 Urine Opiates Screen Positive ng/mL (Negative) H 11/18/23 06:01 Ur Barbiturates Screen Negative ng/mL (Negative) 11/18/23 06:01 Ur Phencyclidine Scrn Negative ng/mL (Negative) 11/18/23 06:01 Ur Amphetamines Screen Positive ng/mL (Negative) H 11/18/23 06:01 U Benzodiazepines Scrn Negative ng/mL (Negative) 11/18/23 06:01 Urine Cocaine Screen Negative ng/mL (Negative) 11/18/23 06:01 U Marijuana (THC) Screen Negative ng/mL (Negative) 11/18/23 06:01 Ethyl Alcohol < 10 mg/dL (0-10) 11/18/23 05:36 Radiology Impressions Chest X-Ray 11/18/23 05:28 IMPRESSION: No acute findings. Chest CTA 11/18/23 05:30 IMPRESSION: No acute findings. Head CT 11/18/23 06:52 IMPRESSION: No mass effect, layering hemorrhage or hydocephalus is demostrated. No acute intracranial changes are appreciated. ADDENDUM: 11/18/23 0831 In the interval of the mandibular condyles overlie the articular eminence with relative symmetry and could represent some processes including slight anterior subluxation or open mouth configuration. Recent Clincial Data Last Vital Signs Temp 97.8 F 11/18/23 05:26 Pulse 89 11/18/23 11:37 Resp 22 H 11/18/23 11:44 BP 132/88 11/18/23 11:00 Pulse Ox 96 11/18/23 11:37 O2 Del Method Room Air 11/18/23 11:37 O2 Flow Rate 2 11/18/23 07:45 Vital Signs Temp Pulse Resp BP Pulse Ox O2 Del Method O2 Del Method 11/18/23 11:44 22 H 11/18/23 11:37 89 96 Room Air 11/18/23 11:00 88 18 132/88 11/18/23 10:38 97 11/18/23 09:00 115/79 11/18/23 08:52 Room Air 11/18/23 08:30 95 16 116/76 100 11/18/23 08:02 95 23 H 11/18/23 07:45 93 100/70 99 Nasal Cannula 11/18/23 06:59 103 H 92/62 99 Nasal Cannula 11/18/23 06:00 103 H 20 H 110/61 97 Nasal Cannula 11/18/23 05:26 97.8 F 104 H 23 H 118/68 91 Room Air O2 Flow Rate 11/18/23 11:44 11/18/23 11:37 11/18/23 11:00 11/18/23 10:38 11/18/23 09:00 11/18/23 08:52 11/18/23 08:30 11/18/23 08:02 11/18/23 07:45 2 11/18/23 06:59 2 11/18/23 06:00 2 11/18/23 05:26 Intake & Output/Weight 11/16/23 11/17/23 11/18/23 11/19/23 06:59 06:59 06:59 06:59 Intake Total 160.822 / 160.822 Balance 160.822 / 160.822 Weight 84.822 kg Vitals Last Vital Signs Temp 97.8 F 11/18/23 05:26 Pulse 89 11/18/23 11:37 Resp 22 H 11/18/23 11:44 BP 132/88 11/18/23 11:00 Pulse Ox 96 11/18/23 11:37 O2 Del Method Room Air 11/18/23 11:37 O2 Flow Rate 2 11/18/23 07:45 TS Medications Medications Acetaminophen (Acetaminophen 325 Mg Tablet) 650 mg PO Q6H PRN PRN Reason: Mild/Mod Pain Or Temp >/= 101 Aspirin (Aspirin 81 Mg Ec Tablet) 81 mg PO QAM MOLLY Atorvastatin Calcium (Atorvastatin 40 Mg Tablet) 40 mg PO BEDTIME MOLLY Gabapentin (Gabapentin 400 Mg Capsule) 800 mg PO BID MOLLY Heparin Sodium (Porcine) (Heparin 5,000 Unit/Ml Inj 1 Ml) 0 unit IV PRN PRN; Protocol PRN Reason: Heparin weight-base protocol Last Admin: 11/18/23 06:30 Dose: 4,000 unit Heparin Sodium/Sodium Chloride (Heparin Drip) 25,000 unit in 500 mls @ 0 mls/hr IV .Q0M MOLLY; Protocol Last Admin: 11/18/23 06:29 Dose: 14 unit/kg/hr, 23.75 mls/hr Amiodarone HCl/Dextrose (Nexterone) 360 mg in 200 mls @ 0 mls/hr IV .Q0M MOLLY; Protocol Last Admin: 11/18/23 12:52 Dose: 1 mg/min, 33.33 mls/hr Sodium Chloride (Sodium Chloride 0.9%) 1,000 mls @ 100 mls/hr IV .Q10H MOLLY Dextrose (D5w) 500 mls @ 0 mls/hr IV ONCE PRN; Protocol PRN Reason: Adult Acute Hypoglycemia Prot Dextrose (D10w) 125 mls @ 750 mls/hr IV PRN PRN; Protocol PRN Reason: Adult Acute Hypoglycemia Nursing Protocol Dextrose (D10w) 250 mls @ 1,000 mls/hr IV PRN PRN; Protocol PRN Reason: Adult Acute Hypoglycemia Nursing Protocol Ceftriaxone Sodium 1,000 mg/ (Sodium Chloride) 50 mls @ 100 mls/hr IV Q24H MOLLY; Protocol Insulin Human Lispro (Insulin Lispro 100 Unit/1 Ml) 0 unit SUBCUT TIDWM MOLLY; Protocol Last Admin: 11/18/23 11:44 Dose: 2 unit Metoprolol Tartrate (Metoprolol Tartrate 50 Mg Tablet) 25 mg PO BID MOLLY Morphine Sulfate (Morphine 4 Mg/Ml Sdv 1 Ml) 2 mg IVP Q4H PRN PRN Reason: SEVERE PAIN Last Admin: 11/18/23 11:44 Dose: 2 mg Naloxone HCl (Naloxone 0.4 Mg/Ml Sdv) 0.1 mg IVP Q2M PRN PRN Reason: OPIATERV Ondansetron HCl (Ondansetron 2 Mg/Ml Sdv 2 Ml) 4 mg IVP Q8H PRN PRN Reason: vomiting, or N/V if npo Pantoprazole Sodium (Pantoprazole 40 Mg Sdv) 40 mg IVP Q24H [facility] Last Admin: 11/18/23 11:44 Dose: 40 mg Discontinued Medications Amiodarone HCl (Amiodarone 50 Mg/Ml Sdv 3 Ml) 150 mg IVP ONCE ONE Stop: 11/18/23 06:06 Last Admin: 11/18/23 06:32 Dose: 150 mg Aspirin (Aspirin 81 Mg Chew Tablet) 324 mg PO ONCE ONE Stop: 11/18/23 05:29 Last Admin: 11/18/23 05:38 Dose: 324 mg Aspirin (Aspirin 81 Mg Chew Tablet) 324 mg PO NOW ONE Stop: 11/18/23 05:40 Last Admin: 11/18/23 05:49 Dose: Not Given Clopidogrel Bisulfate (Clopidogrel 75 Mg Tablet) 75 mg PO QAM [facility] Fentanyl (Fentanyl 50 Mcg/Ml Inj 2ml) Confirm Administered Dose 100 mcg .ROUTE .STK-MED ONE Stop: 11/18/23 08:19 Heparin Sodium (Porcine) (Heparin 5,000 Unit/Ml Inj 1 Ml) Confirm Administered Dose 5,000 unit .ROUTE .STK-MED ONE Stop: 11/18/23 08:19 Heparin Sodium (Porcine) (Heparin 5,000 Unit/Ml Inj 1 Ml) Confirm Administered Dose 5,000 unit .ROUTE .STK-MED ONE Stop: 11/18/23 09:26 Amiodarone HCl/Dextrose (Nexterone) 150 mg in 100 mls @ 400 mls/hr IV ONCE ONE Stop: 11/18/23 06:20 Last Admin: 11/18/23 06:32 Dose: 400 mls/hr Ceftriaxone Sodium 1,000 mg/ (Sodium Chloride) 50 mls @ 100 mls/hr IV ONCE ONE; Protocol Stop: 11/18/23 07:02 Last Admin: 11/18/23 07:30 Dose: 100 mls/hr Lidocaine HCl (Xylocaine) Confirm Administered Dose 20 mls @ as directed .ROUTE .STK-MED ONE Stop: 11/18/23 08:19 Sodium Chloride (Sodium Chloride 0.9%) Confirm Administered Dose 1,000 mls @ as directed .ROUTE .STK-MED ONE Stop: 11/18/23 09:11 Iohexol (Iohexol 350 Mg/Ml 500 Ml Btl (Per Ml)) 0 ml IV ONCE ONE Stop: 11/18/23 05:55 Last Admin: 11/18/23 05:54 Dose: 69 ml Midazolam HCl (Midazolam 1 Mg/Ml Inj 2 Ml) Confirm Administered Dose 2 mg .ROUTE .STK-MED ONE Stop: 11/18/23 08:19 Nitroglycerin (Nitroglycerin 5 Mg/Ml Sdv 10 Ml) Confirm Administered Dose 50 mg .ROUTE .STK-MED ONE Stop: 11/18/23 08:19 Allergies haloperidol [From Haldol] Allergy (Severe, Verified 11/18/23 07:39) made him blind tramadol [From Ultram] Allergy (Verified 11/18/23 07:39) ADR-Itching Home Medications albuterol sulfate 90 mcg/actuation aerosol inhaler (Ventolin HFA) 2 puff inhalation QID PRN Shortness Of Breath 11/18/23 [History Confirmed 11/18/23] aspirin 81 mg tablet,delayed release 81 mg PO QAM 11/18/23 [History Confirmed 11/18/23] atorvastatin 40 mg tablet 40 mg PO BEDTIME 11/18/23 [History Confirmed 11/18/23] clopidogrel 75 mg tablet 75 mg PO QAM 11/18/23 [History Confirmed 11/18/23] gabapentin 800 mg tablet 800 mg PO BID 11/18/23 [History Confirmed 11/18/23] glipizide 5 mg tablet, extended release 24 hr 5 mg PO QAM 11/18/23 [History Confirmed 11/18/23] hydrochlorothiazide 25 mg tablet 25 mg PO QAM 11/18/23 [History Confirmed 11/18/23] hydrocodone 10 mg-acetaminophen 325 mg tablet 1 tab PO Q8H PRN Pain 11/18/23 [History Confirmed 11/18/23] metoprolol tartrate 50 mg tablet 50 mg PO BID 11/18/23 [History Confirmed 11/18/23] multivitamin 1 tab PO QAM 11/18/23 [History Confirmed 11/18/23] ofloxacin 0.3 % eye drops 1 drp ophthalmic (eye) QID 11/18/23 [History Confirmed 11/18/23] ondansetron 4 mg disintegrating tablet 4 mg PO Q8H PRN Nausea And Vomiting 11/18/23 [History Confirmed 11/18/23] sildenafil 25 mg tablet See Rx Instructions .Route .COMPLEX 11/18/23 [History Confirmed 11/18/23] tizanidine 4 mg tablet 4 mg PO Q8H PRN Muscle Spasm 11/18/23 [History Confirmed 11/18/23] Discharge Plan Discharge Condition: Stable Prescriptions: No Action multivitamin Tablet 1 tab PO QAM atorvastatin 40 mg tablet 40 mg PO BEDTIME ofloxacin 0.3 % drops 1 drp ophthalmic (eye) QID Rx Instructions: (right eye)on hold per 11/18/23 tizanidine 4 mg tablet 4 mg PO Q8H PRN (Reason: Muscle Spasm) glipizide 5 mg tablet extended release 24hr 5 mg PO QAM Rx Instructions: stop metformin clopidogrel 75 mg tablet 75 mg PO QAM hydrocodone-acetaminophen 10-325 mg tablet 1 tab PO Q8H PRN (Reason: Pain) sildenafil 25 mg tablet See Rx Instructions .ROUTE .COMPLEX Rx Instructions: TAKE 1 TABLET BY MOUTH ONCE DAILY 1 HOUR BEFORE SEXUAL ACTIVITY NEEDED FOR ERECTILE DYSFUNCTION. STOP IF ANY SIDE EFFECTS. Aspir-81 81 mg Tablet,Delayed Release (Dr/Ec) 81 mg PO QAM gabapentin 800 mg tablet 800 mg PO BID metoprolol tartrate 50 mg tablet 50 mg PO BID hydrochlorothiazide 25 mg tablet 25 mg PO QAM Ventolin HFA 90 mcg/actuation HFA aerosol inhaler 2 puff INHALATION QID PRN (Reason: Shortness Of Breath) ondansetron 4 mg tablet,disintegrating 4 mg PO Q8H PRN (Reason: Nausea And Vomiting) Patient Instructions: Opioid Safety, Pain Management Transfer Attestations Time Spent in Transfer Care: greater than 30 min Quality Metrics Clinical Quality Measures [ No reported AMI, CVA or VTE this stay] Coding Level of Care Code Critical Care >/= 30 minutes Critical care time (in minutes): 45 The high probability of a clinically significant, sudden or life threatening deterioration, as referenced in this documentation, required my full and direct attention, intervention and personal management. The critical care time shown is in addition to time spent performing any reported separately billable procedures and includes the following: [x] Data and vital sign review and interpretation [x] Patient assessment, examination and intervention [x] Medication orders and management [x] Patient/Family updates as able [x] Care Coordination and Documentation. Diagnoses Cardiac arrest with ventricular fibrillation I46.9; I49.01 NSTEMI (non-ST elevated myocardial infarction) I21.4 WPW (Oifwb-Pioppsfze-Ehilh syndrome) I45.6 COPD (chronic obstructive pulmonary disease) J44.9 UTI (urinary tract infection) N39.0 Goals of care, counseling/discussion Z71.89
--- NOTE | 2023-11-18 13:28 | PC.NURSE ---
TR band removed and dressing placed on non bleeding site. [facility] transport loaded patient with amio and heparin running. Report called to receiving nurse. Patient tolerated well.
== END 2023-11-18 13:15 | disposition short-term general hospital (02) | DRG 281 ==
LOC: ER 07:04 → ICU 07:59
PROVIDERS: Internal Medicine; Admitting Provider Family Medicine; Emergency Provider Family Medicine; PCP Student in an Organized Health Care Education/Training Program; Visit Provider Family Medicine
PROC: 4A023N7 Measurement of Cardiac Sampling and Pressure, Left Heart, Percutaneous Approach (ICD-10-PCS; principal; 2023-11-18 09:00)
DX: I49.01 Ventricular fibrillation (principal); I21.4 Non-ST elevation (NSTEMI) myocardial infarction; N39.0 Urinary tract infection, site not specified; I46.2 Cardiac arrest due to underlying cardiac condition; J44.9 Chronic obstructive pulmonary disease, unspecified; Z72.0 Tobacco use; F10.21 Alcohol dependence, in remission; R82.5 Elevated urine levels of drugs, medicaments and biological substances; I45.6 Pre-excitation syndrome; I44.7 Left bundle-branch block, unspecified; E11.9 Type 2 diabetes mellitus without complications; Z79.84 Long term (current) use of oral hypoglycemic drugs; I10 Essential (primary) hypertension; Z79.82 Long term (current) use of aspirin; Z79.02 Long term (current) use of antithrombotics/antiplatelets
CPT/HCPCS: 36415; 36416; 70450; 71045; 71275; 80053; 80061; 80306; 80307; 81001; 82550; 82962; 83036; 83605; 83735; 83880; 84145; 84443; 84484; 85025; 85347; 85610; 85730; 86140; 87040; 87077; 87086; 87186; 93005; 93458; 96365; 96366; 96367; 96372; 96375; 99152; 99153; 99285; A4222; C1769; C1887; C1894; C9113; J0282; J0283; J0696; J1644; J1815; J2250; J2270; J3010; J3490; J7030; Q9967